=== PATIENT | male | born 1945 | race African-American/Black ===

== ENCOUNTER 2020-01-04 05:20 | Observation (INO) | payer OTHER ==
[2019-12-31 11:38] LABS: BASOPHILS % 0.6 % (0.0-1.0); EOSINOPHILS # (AUTO) 0.1 (0.0-0.4); HEMATOCRIT 42.4 % (38.2-49.6); HEMOGLOBIN 14.3 g/dL (14.0-18.0); LYMPHOCYTES # (AUTO) 2.4 (1.0-3.2); LYMPHOCYTES % 33.8 % (18.0-39.1); MEAN CORPUSCULAR HEMOGLOBIN 30.9 pg (28-32); MEAN CORPUSCULAR HGB CONC 33.7 g/dL (31-35); MEAN CORPUSCULAR VOLUME 91.6 fL (81-99); MONOCYTES # (AUTO) 0.7 (0.2-0.8); MONOCYTES % 9.4 % (4.4-11.3); NEUTROPHILS # (AUTO) 3.7 (2.1-6.9); NEUTROPHILS % 53.8 % (38.7-80.0); PLATELET COUNT 238 x10e3/uL (140-360); RED BLOOD COUNT 4.63 x10e6/uL (4.3-5.7); RED CELL DISTRIBUTION WIDTH 13.1 % (11.7-14.4)
[2019-12-31 11:53] LABS: ANION GAP 15.1 mmol/L (8-16); CALCIUM 10.2 mg/dL (8.4-10.2); CREATININE, SERUM 1.62 mg/dL (0.72-1.25); POTASSIUM 4.1 mmol/L (3.5-5.1)
--- NOTE | 2019-12-31 12:25 | Diagnostic Imaging Report ---
EXAMINATION: CHEST 2 VIEWS INDICATION: Pre-operative COMPARISON: None FINDINGS: LINES/TUBES:None LUNGS:The lungs are well-inflated. No focal consolidation or pulmonary edema. Right middle lobe calcified granuloma. PLEURA:No pleural effusion or pneumothorax. MEDIASTINUM:The cardiomediastinal silhouette appears normal in size and shape. Atherosclerotic calcifications of the thoracic aorta. BONES/SOFT TISSUES:No acute osseous injury. ABDOMEN:No free air under the diaphragm. IMPRESSION: No focal pneumonia or pulmonary edema. Signed by: Ijeoma Wright MD on 12/31/2019 12:22 PM
[~2020-01-04] VITALS: Ht 188 cm; Wt 120.7 kg
[~2020-01-04 05:20] MED LIST: AMLODIPINE BESY10 MG PO; ATORVASTATIN CA20 MG PO; BRIMONIDINE TART5 ML OP; LASIX40 MG PO; LISINOPRIL HCTZ PO; POTASSIUM CHLO10 ME1 PO
--- OUTSIDE RECORDS SUMMARY | 2020-01-04 05:22 | XMS REPORT | Encounter Summary ---
Author Organization Unknown Address [address] [place] [address] Phone [phone] Care Team Providers Care Furniture Repair Technician Name Role Phone Dr. Brock Das 3 [phone] Zaki Conte MD 111 [phone] Francisco Bellamy MD 115 [phone] Reason for Visit Onychomycosis of toenails; Left ear pain/problem Instructions 1. Onychomycosis of toenails terbinafine HCl 250 mg tablet CMP, serum or plasma 2. Serous otitis media Zithromax Z-Peter 250 mg tablet Discussion Note: None recorded. Patient educational handouts: No information available. Plan of Care Reminders Provider Appointments Return to Office on or around 03/23/2019 Brock Das Jr, MD Est Patient 04/13/2019 9:00AM Brock Das Jr, MD Lab CMP, Serum or Plasma 03/16/2019 [facility] Referral None recorded. Procedures None recorded. Surgeries None recorded. Imaging None recorded. Medications Name Start Date amlodipine 10 mg tablet Take 1 tablet every day by oral route for 90 days. atorvastatin 40 mg tablet Take 1 tablet every day by oral route for 90 days. brimonidine 0.15 % eye drops Instill by ophthalmic route for 30 days. furosemide 40 mg tablet Take 1 tablet every day by oral route for 90 days. latanoprost 0.005 % eye drops lisinopril 20 mg-hydrochlorothiazide 25 mg tablet Take 1 tablet every day by oral route for 90 days. potassium chloride ER 20 mEq tablet,extended release(part/cryst) Take 1 tablet every day by oral route for 90 days. terbinafine HCl 250 mg tablet Take 1 tablet every day by oral route. timolol maleate 0.5 % eye drops Zithromax Z-Peter 250 mg tablet TAKE 2 TABLETS (500 MG) BY ORAL ROUTE ONCE DAILY FOR 1 DAY THEN 1 TABLET (250 MG) BY ORAL ROUTE ONCE DAILY FOR 4 DAYS Medications Administered None recorded. Vitals Height Weight BMI Blood Pressure 6 ft 2 in 278 lbs 35.7 kg/m2 138/68 mm[Hg] Lab Results Date Name Specimen Result Interpretation Description Value Range Status Address 02/13/2019 Hepatitis C Virus RNA, Quant, PCR, Serum or Plasma Normal Hepatitis C Antibody non-reactive non-reactive Final [facility] Laboratory: [address] Normal Signal to Cut-off 0.02 <1.00 Final [facility]: [address] Peng [address] 02/13/2019 CMP, Serum or Plasma Alt 31 U/L 0-55 U/L Final [facility]: [address] Ast 19 U/L 5-34 U/L Final [facility] Laboratory: [address] Peng [address] Bun 18.7 mg/dL 8.4-25.7 mg/dL Final [facility]: [address] Alk Phos 111 unit/L 40-150 unit/L Final [facility]: [address] Peng [address] High Glucose 130 mg/dL 70-99 mg/dL Final [facility] Laboratory: [address] Albumin 3.8 g/dL 3.5-5.0 g/dL Final [facility]: [address] Peng [address] High Creatinine 1.60 mg/dL 0.72-1.25 mg/dL Final [facility]: [address] Peng [address] ABNORMAL eGFR Non- 43 mL/min/1.73m2 Final [facility]: [address] Total Bilirubin 0.4 mg/dL 0.2-1.2 mg/dL Final [facility]: [address] Peng [address] ABNORMAL eGFR - 52 mL/min/1.73m2 Final [facility]: [address] Sodium 139 mEq/L 136-145 mEq/L Final [facility] Laboratory: [address] Potassium 4.1 mEq/L 3.5-5.1 mEq/L Final [facility] Laboratory: [address] Chloride 102 mmol/L 98-107 mmol/L [facility] Laboratory: [address] T[address] [facility] Saline Total Protein 7.4 g/dL 6.4-8.3 g/dL Final [facility] Laboratory: [address] Box Saline High Calcium 10.1 mg/dL 8.8-10.0 mg/dL [facility] Laboratory: [address] Bloom Co2 25.2 mmol/L 23.0-31.0 mmol/L Final [facility] Laboratory: [address] [place] [address] Saline Anion Gap 12 calc Final [facility] Laboratory: [address] [place] [address] Saline Allergies Code Code System Name Reaction Severity Status Onset NKDA Problems Name Status Onset Date Source Primary Open Angle Glaucoma Active 12/05/2017 Age-related Cataract Active 12/05/2017 Congestive Heart Failure Active 12/05/2017 Hyperlipidemia Active 01/22/2018 Chronic Kidney Disease Stage 3 Active 01/22/2018 Impaired Glucose Tolerance Active 01/22/2018 Onychomycosis of Toenails Active 01/06/2019 Inflammation of Sacroiliac Joint Active 01/06/2019 Left Ventricular Hypertrophy Active 01/14/2019 Procedures Date Name Performed by 11/25/1997 Hernia Repair Information not available Vaccine List Vaccine Type influenza, high dose seasonal 01/06/20190.5 mL pneumococcal conjugate PCV 13 01/06/20190.5 mL Social History Smoking Status Never Smoker Past Encounters 03/16/2019 Onychomycosis of Toenails; Serous Otitis Media Brock Das Jr, MD: [address], [facility] [address] [address], Ph. 02/13/2019 Onychomycosis of Toenails; Exposure to Hepatitis C Virus Brock Das Jr, MD: [address], [facility], [place] [address], Ph. History of Present Illness Note:Patient presents for lab follow up. Currently witho complaint of ear discomfort Review of Systems Comprehensive Adult Problem ROS Reported By: Patient Constitutional: Constitutional: no significant weight change, no fever, normal activity level, no fatigue Eyes: Eyes: no eye pain, no eye redness, no eye swelling, no eye discharge ENMT: ENMT: no ear discharge, no hearing loss, no sinus pressure, no facial swelling, no congestion, no sore throat, no hoarseness, no mouth lesions, ear pain Neurological symptoms: Neuro: dizziness Physical Exam Upper Respiratory Infection Exam Comprehensive Reported By: Patient Constitutional: General Appearance in no acute distress Head: Sinuses no tenderness Eyes: Pupils EOM intact, PERRLA, conjunctiva non-injected Ears: Right External auditory canal normal appearance, no obstruction, no erythema, no discharge. Left External auditory canal normal appearance, no obstruction, no erythema, no discharge. Right Tympanic membrane landmarks clear, dull, bulging. Left Tympanic membrane: landmarks clear, dull, bulging Nose: Nasal Skin: no lesion, no lacerations. Nasal Mucosa normal, pink and moist Oral Cavity/Mouth: Lips, teeth, gums normal lips, normal gums. Oral Mucosa: normal, moist, no lesions. Tongue: normal tongue. Tonsils: normal tonsils, no lesions. Posterior pharynx: lymphoid hyperplasia (cobblestoning) Lymph Nodes: Cervical no palpable lymph node enlargement Neck: Neck symmetrical, trachea midline Lungs: Respiratory effort unlabored. Auscultation breath sounds normal, no wheezing, no rales / crackles, no rhonchi Cardiovascular System: Auscultation regular rate and rhythm, no murmur, no rubs
--- OUTSIDE RECORDS SUMMARY | 2020-01-04 05:22 | XMS REPORT | Encounter Summary ---
Author Organization Unknown Address [address] [place] [address] Phone [phone] Care Team Providers Care Firewall Administrator Name Role Phone Dr. Brock Das 3 [phone] Zaki Conte MD 111 [phone] Francisco Bellamy MD 115 [phone] Reason for Visit Onychomycosis of toenails Instructions 1. Onychomycosis of toenails CMP, serum or plasma terbinafine HCl 250 mg tablet 2. Exposure to Hepatitis C virus hepatitis C virus RNA, quant, PCR, serum or plasma Discussion Note: None recorded. Patient educational handouts: No information available. Plan of Care Reminders Provider Appointments Est Patient 03/16/2019 8:45AM Brock Das Jr, MD Lab CMP, Serum or Plasma 02/13/2019 [facility] Hepatitis C Virus RNA, Quant, PCR, Serum or Plasma 02/13/2019 [facility] Referral None [...] route. timolol maleate 0.5 % eye drops Medications Administered None recorded. Vitals Height Weight BMI Blood Pressure 6 ft 2 in 274 lbs 35.2 kg/m2 120/68 mm[Hg] Lab Results None recorded. Allergies Code Code System Name Reaction Severity [...] History Smoking Status Never Smoker Past Encounters 02/13/2019 Onychomycosis of Toenails; Exposure to Hepatitis C Virus Brock Das Jr, MD: [address] [facility], [facility], [place] [address], Ph. History of Present Illness Generic HPI Template Reported By: Patient Notes: Patient presents for routine lab follow up. Currently without new complaint. Review of Systems Comprehensive General Adult ROS Reported By: Patient Constitutional: Constitutional: no significant weight gain, no significant weight loss Cardiovascular: Cardiovascular: no chest pain, no shortness of breath when walking Respiratory: Respiratory: no cough, no wheezing, no shortness of breath Gastrointestinal: Gastrointestinal: no abdominal pain, no nausea, no vomiting Endocrine: Endocrine: no fatigue Physical Exam Neurology Exam Reported By: Patient Constitutional: Weight: well-nourished. Ambulation: ambulates independently Head: Size/Trauma: normocephalic Mental Status: Orientation oriented to person, oriented to place, oriented to time. Mood/Affect: appropriate mood, appropriate affect. Language: has spontaneous speech. Memory: recent memory intact, remote memory intact. Fund of Knowledge: current events, past history
--- OUTSIDE RECORDS SUMMARY | 2020-01-04 05:22 | XMS REPORT ---
Author Author [facility] Address Unknown Phone Unavailable Care Team Providers Care Executive Administrative Asst Name Role Phone GAYE VARGAS Unavailable Unavailable Problems This patient has no known problems. Allergies, Adverse Reactions, Alerts This patient has no known allergies or adverse reactions. Medications This patient has no known medications. Results Test Description Test Time Test Comments Text Results Atomic Results Result Comments CHEST 2 VIEWS 2019-12-31 12:21:00 [place] [address] Patient Name: CARIDAD FREEMAN MR #: [id number] : 1945 Age/Sex: 74/M Req #: [id number] Adm Physician: Ordered by: GAYE VARGAS MD Report #: [id number] Location: OR Room/Bed: Procedure: [id number] DX/CHEST 2 VIEWS Exam Date: 12/31/19 Exam Time: 1125 REPORT STATUS: Signed EXAMINATION: CHEST 2 VIEWS INDICATION: Pre-operative COMPARISON: None FINDINGS: LINES/TUBES:None LUNGS:The lungs are well-inflated. No focal consolidation or pulmonary edema. Right middle lobe calcified granuloma. PLEURA:No pleural effusion or pneumothorax. MEDIASTINUM:The cardiomediastinal silhouette appears normal in size and shape. Atherosclerotic calcifications of the thoracic aorta. BONES/SOFT TISSUES:No acute osseous injury. ABDOMEN:No free air under the diaphragm. IMPRESSION: No focal pneumonia or pulmonary edema. Signed by: Renetta Wright MD on 12/31/2019 12:22 PM Dictated By: RENETTA WRIGHT MD 1222 Transcribed By: [place] on 12/31/19 1222 COPY TO: GAYE VARGAS MD
--- OUTSIDE RECORDS SUMMARY | 2020-01-04 05:22 | XMS REPORT | Encounter Summary ---
Author Organization Unknown Address [address] [place] [address] Phone [phone] Care Team Providers Care Vegetable Cook Name Role Phone Dr. Brock Das 3 [phone] Zaki Conte MD 111 [phone] Francisco Bellamy MD 115 [phone] Reason for Visit Quality BMI DEPRESSION FALL; Right low back pain; Bilateral toe problem; AWV Annual Wellness Visit Male (VFP); Bilateral groin problem Instructions 1. Adult health examination 2. Body mass index 30+ - obesity learning about healthy weight 3. Morbid obesity 4. Advance directive discussed with patient advance care planning: care instructions 5. Depression screening 6. At risk for falls preventing falls: care instructions 7. Congestive heart failure US, echocardiogram, transthoracic, complete, w/ color flow 8. Right inguinal hernia general surgery referral 9. Left inguinal hernia general surgery referral 10. Lumbar radiculopathy XR, lumbosacral spine, 2 or 3 view 11. Inflammation of sacroiliac joint 12. Onychomycosis of toenails CMP, serum or plasma 13. Immunization Fluzone High-Dose [id number] (PF) 180 mcg/0.5 mL intramuscular syringe Prevnar 13 (PF) 0.5 mL intramuscular syringe Discussion Note: None recorded. Plan of Care Patient Instructions It was good to see you in the office today for your Medicare Annual Wellness Visit. You have been provided some information on healthy nutrition, including a diet rich in fruits and vegetables, minimizing simple carbohydrates, salt, and saturated fats. I want to encourage regular cardiovascular exercise such as walking at least 30 minutes daily, 5 times per week. Please remember to schedule any preventive health measures that we talked about today. You have also been provided education on fall prevention and community- based lifestyle interventions to help reduce health risks and promote healthy living in your Annual Wellness folder. Screening Recommendations 1. Vaccines Pneumococcal: Recommended today Influenza: Recommended today Shingles: Recommended today Tetanus: Recommended today 2. Prostate Screening: Recommended today 3. Colorectal cancer Screening Colonoscopy: Recommended today Fecal Occult Blood: discussed today and information sent with patient in their Annual Wellness health folder 4. Bone Mass Measurement: No screening necessary 5. Eye Exam Screening: discussed today 6. Cholesterol Screening: discussed today 7. Diabetes Screening: discussed today Reminders Provider Appointments None recorded. Lab CMP, Serum or Plasma 01/06/2019 [facility] Referral General Surgery Referral 01/06/2019 Surjit Thacker MD General Surgery Referral 01/06/2019 Surjit Thacker MD Procedures None recorded. Surgeries None recorded. Imaging US, Echocardiogram, Transthoracic, Complete, W/ Color Flow 01/06/2019 [facility] XR, Lumbosacral Spine, 2 or 3 View 01/06/2019 [facility] Medications Name Start Date amlodipine 10 mg [...] route for 90 days. potassium chloride ER 10 mEq tablet,extended release(part/cryst) Take 1 tablet every day by oral route for 90 days. Shingrix (PF) 50 mcg/0.5 mL intramuscular suspension, kit timolol maleate 0.5 % eye drops Medications Administered None recorded. Vitals Height Weight BMI Blood Pressure 6 ft 2 in 275 lbs 35.3 kg/m2 132/78 mm[Hg] Lab Results None recorded. Allergies Code Code System Name Reaction Severity Status Onset NKDA Problems Name Status Onset Date Source Primary Open Angle Glaucoma Active 12/05/2017 Age-related Cataract Active 12/05/2017 Congestive Heart Failure Active 12/05/2017 Hyperlipidemia Active 01/22/2018 Chronic Kidney Disease Stage 3 Active 01/22/2018 Impaired Glucose Tolerance Active 01/22/2018 Onychomycosis of Toenails Active 01/06/2019 Inflammation of Sacroiliac Joint Active 01/06/2019 Procedures Date Name Performed by 11/25/1997 Hernia Repair Information not available 01/06/2019 US, Echocardiogram, Transthoracic, Complete, W/ Color Flow [facility] [address] [place] [address] (Work [address]) 01/06/2019 XR, Lumbosacral Spine, 2 or 3 View [facility] [address] [place] [address] (Work Place) Vaccine List None recorded. Social History Smoking Status Never Smoker Past Encounters 01/06/2019 Adult Health Examination; Body Mass Index 30+ - Obesity; Morbid Obesity; Advance Directive Discussed with Patient; Depression Screening; At Risk for Falls; Congestive Heart Failure; Right Inguinal Hernia; Left Inguinal Hernia; Lumbar Radiculopathy; Inflammation of Sacroiliac Joint; Onychomycosis of Toenails; Immunization Brock Das Jr, MD: [address] [facility] [address], [place] [address], Ph. History of Present Illness Mini Cog Reported By: Patient Functional Ability: Personal/Social/ Draw a clock and write in the numbers in the correct place, and set the time to 10 minutes after 11 o'clock was completed correctly? Yes, 3 word recall: Your nurse or doctor will ask you to remember 3 words. In 5 minutes, they will ask you to repeat them. Patient recalled 3 words Musculoskeletal Pain Reported By: Patient HPI: Location: pain radiating to the legs right, lumbar spine. Quality: dull. Severity: worsening. Duration: present for 1-6 months. Timing: intermittent. Alleviating factors: rest. Aggravating factors: movement/positioning. Associated Symptoms: no fever, no weak limbs, no tingling, no numbness of the legs/feet Review of Systems Comprehensive General Adult ROS, Comprehensive Adult Problem ROS Reported By: Patient Cardiovascular: Cardiovascular: no chest pain Gastrointestinal: Gastrointestinal: normal appetite Musculoskeletal: Musculoskeletal: no soft tissue swelling, no joint swelling, myalgia Integumentary: Skin: no redness, no skin lesions, no swelling Neurologic: Neurologic: no weakness, no numbness. Neuro: no tingling Hematologic/Lymphatic: Hematologic/Lymphatic no bruising Constitutional: Constitutional: no significant weight change Physical Exam Musculoskeletal and Joint Exam, Low Back Pain Reported By: Patient Musculoskeletal System: Musculoskeletal System normal range of motion in all peripheral joints. Right Hip: no tenderness. Left Hip: no tenderness. Lumbar / Lumbosacral Spine normal lordosis, tenderness on palpation, spasms. Soft Tissue/Bursa: tender point none Constitutional: General Appearance: healthy-appearing, normal body habitus, NAD Gait and Station: Appearance: normal gait, no limp, ambulating with no assistive devices
--- OUTSIDE RECORDS SUMMARY | 2020-01-04 05:22 | XMS REPORT | Encounter Summary ---
Author Organization Unknown Address [address] [place] [address] Phone [phone] Care Team Providers Care Wing Mailer Machine Operator Name Role Phone Dr. Brock Das 3 [phone] Andrew Rodas MD 107 [phone] Zaki Conte MD 111 [phone] Francisco Bellamy MD 115 [phone] Reason for Visit Right knee pain/problem; Annual Alcohol Misuse Screening Instructions 1. Hypertensive renal disease amlodipine 10 mg tablet furosemide 40 mg tablet lisinopril 20 mg-hydrochlorothiazide 25 mg tablet potassium chloride ER 20 mEq tablet,extended release(part/cryst) CMP, serum or plasma CBC w/ auto diff TSH, serum or plasma 2. Chronic kidney disease stage 3 PTH (parathyroid hormone), intact, serum or plasma 3. Hyperlipidemia atorvastatin 40 mg tablet high cholesterol: care instructions lipid panel, serum 4. Alcohol consumption screening learning about alcohol misuse 5. Iliotibial band friction syndrome physical therapy referral - *Please call the patient and schedule* diclofenac sodium 75 mg tablet,delayed release 6. Jaw pain XR, mandible - *Please call the patient and schedule* 7. Screening for malignant neoplasm of colon colonoscopy referral 8. Impaired glucose tolerance HbA1c (hemoglobin A1c), blood 9. Screening for malignant neoplasm of prostate PSA, serum or plasma Discussion Note: None recorded. Plan of Care Reminders Provider Appointments Est Patient 10/05/2019 9:00AM Brock Das Jr, MD Lab CMP, Serum or Plasma 07/06/2019 [facility] CBC W/ Auto Diff 07/06/2019 [facility] TSH, Serum or Plasma 07/06/2019 [facility] Lipid Panel, Serum 07/06/2019 [facility] HbA1C (Hemoglobin a1C), Blood 07/06/2019 [facility] PTH (Parathyroid Hormone), Intact, Serum or Plasma 07/06/2019 [facility] PSA, Serum or Plasma 07/07/2019 [facility] Referral Colonoscopy Referral 07/06/2019 Andrew Rodas MD Physical Therapy Referral 07/06/2019 [facility] Procedures None recorded. Surgeries None recorded. Imaging XR, Mandible 07/06/2019 [facility] Medications Name Start Date amlodipine 10 mg tablet Take 1 tablet every day by oral route for 90 days. atorvastatin 40 mg tablet Take 1 tablet every day by oral route for 90 days. brimonidine 0.15 % eye drops Instill by ophthalmic route for 30 days. diclofenac sodium 75 mg tablet,delayed release Take 1 tablet twice a day by oral route for 30 days. furosemide 40 mg tablet Take 1 tablet every day by oral route for 90 days. latanoprost 0.005 % eye drops lisinopril 20 mg-hydrochlorothiazide 25 mg tablet Take 1 tablet every day by oral route for 90 days. potassium chloride ER 20 mEq tablet,extended release(part/cryst) Take 1 tablet every day by oral route for 90 days. timolol maleate 0.5 % eye drops Medications Administered None recorded. Vitals Height Weight BMI Blood Pressure 6 ft 2 in 276.8 lbs 35.5 kg/m2 132/72 mm[Hg] Lab Results None recorded. Allergies Code [...] by 11/25/1997 Hernia Repair Information not available Colonoscopy Information not available 07/06/2019 XR, Mandible [facility] [address] [place] [address] (Work Place) Vaccine List Vaccine Type influenza, high dose seasonal 01/06/20190.5 mL pneumococcal conjugate PCV 13 01/06/20190.5 mL Social History Tobacco Smoking Status Never Smoker Past Encounters 07/06/2019 Hypertensive Renal Disease; Chronic Kidney Disease Stage 3; Hyperlipidemia; Alcohol Consumption Screening; Iliotibial Band Friction Syndrome; Jaw Pain; Screening for Malignant Neoplasm of Colon; Impaired Glucose Tolerance; Screening for Malignant Neoplasm of Prostate Brock Pippa Jr, MD: [address] [facility], [address], [place] [address], Ph. History of Present Illness Musculoskeletal Pain Reported By: Patient HPI: Location: pain is not radiating, right hip, right knee. Severity: worsening. Duration: present <1 month. Timing: constant. Alleviating factors: rest. Aggravating factors: movement/positioning. Associated Symptoms: no fever, no weak limbs, no tingling, no numbness of the legs/feet Review of Systems Comprehensive Adult Problem ROS Reported By: Patient Constitutional: Constitutional: no significant weight change, good appetite Cardiovascular: Cardiovascular: no chest pain Musculoskeletal: Musculoskeletal: no soft tissue swelling, no joint swelling, myalgia Skin: Skin: no redness, no skin lesions, no swelling, no bruising Neurological symptoms: Neuro: no numbness, no weakness, no tingling Physical Exam Musculoskeletal and Joint Exam, Low Back Pain Reported By: Patient Musculoskeletal System: Musculoskeletal System normal range of motion in all peripheral joints Psychiatric: Orientation: oriented to time, oriented to place, oriented to person. Mood and Affect: active and alert, normal mood, normal affect
--- OUTSIDE RECORDS SUMMARY | 2020-01-04 05:22 | XMS REPORT | Encounter Summary ---
Author Organization Unknown Address [address] [place] [address] Phone [phone] Care Team Providers Care Operations Trainer Name Role Phone Dr. Brock Das 3 [phone] Zaki Conte MD 111 [phone] Francisco Bellamy MD 115 [phone] Reason for Visit Onychomycosis of toenails; Advance Care Plan Instructions 1. Onychomycosis of toenails 2. Chronic kidney disease stage 3 3. Advance directive discussed with patient advance care planning: care instructions Discussion Note: None recorded. Plan of Care Patient Instructions Patient Instructions on Filing Advance Directives Be sure that you have easy access to your paperwork for your medical power of insurance attorney and advanced directives. Be sure that the designated person as well as important family members have copies of those forms as well. Please have contact information of your designee readily available. In the event of hospitalization, please bring those important documents with you for reference. Reminders Provider Appointments Est Patient 07/13/2019 9:15AM Brock Das Jr, MD Lab None recorded. Referral None recorded. Procedures None recorded. Surgeries None recorded. Imaging None recorded. Medications Name Start Date amlodipine 10 mg tablet Take 1 tablet every day by oral route for 90 days. atorvastatin 40 mg tablet Take 1 tablet every day by oral route for 90 days. azithromycin 250 mg tablet TAKE 2 TABLETS (500 MG) BY ORAL ROUTE ONCE DAILY FOR 1 DAY THEN 1 TABLET (250 MG) BY ORAL ROUTE ONCE DAILY FOR 4 DAYS brimonidine 0.15 % eye drops Instill by [...] BMI Blood Pressure 6 ft 2 in 275.2 lbs 35.3 kg/m2 134/72 mm[Hg] Lab Results Date Name Specimen Result Interpretation Description Value Range Status Address 03/16/2019 CMP, Serum or Plasma Alt 36 U/L 0-55 U/L Final [facility] Laboratory: [address] [place] [address], [place] 23 U/L 5-34 U/L Final [facility] Laboratory: [address] Bun 18.1 mg/dL 8.4-25.7 mg/dL Final [facility] Laboratory: [address] Alk Phos 102 unit/L 40-150 unit/L Final [facility] Laboratory: [address] High Glucose 138 mg/dL 70-99 mg/dL Final [facility] Laboratory: [address] Albumin 4.0 g/dL 3.5-5.0 g/dL Final [facility] Laboratory: [address] High Creatinine 1.63 mg/dL 0.72-1.25 mg/dL Final [facility] Laboratory: [address] ABNORMAL eGFR Non- 42 mL/min/1.73m2 Final [facility] Laboratory: [address] Total Bilirubin 0.4 mg/dL 0.2-1.2 mg/dL Final [facility] Laboratory: [address] ABNORMAL eGFR - 51 mL/min/1.73m2 Final [facility] Laboratory: [address] Sodium 140 mEq/L 136-145 mEq/L Final [facility] Laboratory: [address] Potassium 3.8 mEq/L 3.5-5.1 mEq/L Final [facility] Laboratory: [address] Chloride 105 mmol/L 98-107 mmol/L Final [facility] Laboratory: [address] Total Protein 7.2 g/dL 6.4-8.3 g/dL Final [facility] Laboratory: [address] Calcium 9.9 mg/dL 9.0-10.2 mg/dL Final [facility] Laboratory: [address] Co2 28.1 mmol/L 23.0-31.0 mmol/L Final [facility] Laboratory: [address] Anion Gap 7 calc Final [facility] Laboratory: [address] Peng [facility] Praveen Bloom Allergies Code Code System Name Reaction Severity [...] History Smoking Status Never Smoker Past Encounters 04/13/2019 Onychomycosis of Toenails; Chronic Kidney Disease Stage 3; Advance Directive Discussed with Patient Brock Das Jr, MD: [address], [address] [address], Ph. 03/16/2019 Onychomycosis of Toenails; Serous Otitis Media Brock Das Jr, MD: [address], [address] [address], Ph. History of Present Illness Note:Patient presents for lab follow up.
I'd like to talk about what is ahead with your illness and do some thinking in advance about what is important to you so I can make sure we provide you with the care you want-is that okay? {{Yes*|No}}

Patient presents for lab follow up. Currently without complaint. Review of Systems Comprehensive General Adult ROS, Comprehensive Adult Problem ROS Reported By: Patient Constitutional: Constitutional: no significant weight gain, no significant weight loss Cardiovascular: Cardiovascular: no chest pain, no shortness of breath when walking Respiratory: Respiratory: no cough, no wheezing, no shortness of breath Integumentary: Skin: no rashes, no skin lesions Endocrine: Endocrine: no fatigue Physical Exam Neurology Exam, Skin Exam, Foot Only (Brief) Reported By: Patient Constitutional: Weight: well-nourished. Ambulation: ambulates independently Head: Size/Trauma: normocephalic Mental Status: Orientation oriented to person, oriented to place, oriented to time. Mood/Affect: appropriate mood, appropriate affect. Language: has spontaneous speech. Memory: recent memory intact, remote memory intact. Fund of Knowledge: current events, past history Ankles and Feet: Active Range of Motion Right: ; onychomycosis"
--- OUTSIDE RECORDS SUMMARY | 2020-01-04 05:22 | XMS REPORT | Encounter Summary ---
Author Organization Unknown Address [address] [place] [address] Phone [phone] Care Team Providers Care Hot Plate Press Operator Name Role Phone Dr. Brock Das 3 [phone] Andrew Rodas MD 107 [phone] Zaki Conte MD 111 [phone] Francisco Bellamy MD 115 [phone] Reason for Visit hyperlipidemia; lab follow-up Instructions 1. Type 2 diabetes mellitus diabetic nutrition education referral metformin ER 500 mg tablet,extended release 24 hr 2. Chronic kidney disease stage 3 3. Hyperlipidemia high cholesterol: care instructions 4. Hyperparathyroidism NM, parathyroid scan 5. Body mass index 30+ - obesity body mass index: care instructions learning about healthy weight Discussion Note: None recorded. Plan of Care Reminders Provider Appointments Est Patient 10/05/2019 9:00AM Brock Das Jr, MD Lab None recorded. Referral Diabetic Nutrition Education Referral 07/13/2019 Procedures None recorded. Surgeries None recorded. Imaging NM, Parathyroid Scan 07/13/2019 [facility]iology Medications Name Start Date amlodipine [...] day by oral route for 90 days. lisinopril 20 mg-hydrochlorothiazide 25 mg tablet Take 1 tablet every day by oral route for 90 days. metformin ER 500 mg tablet,extended release 24 hr Take 1 tablet every day by oral route for 90 days. potassium chloride ER 20 mEq tablet,extended release(part/cryst) Take 1 tablet every day by oral route for 90 days. Medications Administered None recorded. Vitals Height Weight BMI Blood Pressure 6 ft 2 in 270.2 lbs 34.7 kg/m2 (1) 148/76 mm[Hg] (2) 130/70 mm[Hg] Lab Results Date Name Specimen Result Interpretation Description Value Range Status Address 07/06/2019 CMP, Serum or Plasma Alt 33 U/L 0-55 U/L Final [facility] Laboratory: [address] Ast 24 U/L 5-34 U/L Final [facility] Laboratory: [address] [place] [address] Bun 21.2 mg/dL 8.4-25.0 mg/dL Final [facility] Laboratory: [address] Alk Phos 91 unit/L 40-150 unit/L Final [facility] Laboratory: [address] High Glucose 101 mg/dL 70-99 mg/dL Final [facility] Laboratory: [address] [place] [address] Albumin 4.1 g/dL 3.4-5.1 g/dL Final [facility] Laboratory: [address] High Creatinine 1.64 mg/dL 0.72-1.25 mg/dL Final [facility] Laboratory: [address] ABNORMAL eGFR Non- 42 mL/min/1.73m2 Final [facility] Laboratory: [address] [place] [address] Total Bilirubin 0.6 mg/dL 0.2-1.2 mg/dL Final [facility] Laboratory: [address] [place] [address] ABNORMAL eGFR - 50 mL/min/1.73m2 Final [facility] Laboratory: [address] [place] [address] Sodium 143 mEq/L 135-145 mEq/L Final [facility] Laboratory: [address] Potassium 3.6 mEq/L 3.5-5.1 mEq/L Final [facility] Laboratory: [address] Chloride 104 mmol/L 98-110 mmol/L Final [facility] Laboratory: [address] Total Protein 7.1 g/dL 6.1-8.2 g/dL Final [facility] Laboratory: [address] High Calcium 10.3 mg/dL 9.0-10.2 mg/dL Final [facility] Laboratory: [address] Co2 27.0 mmol/L 20.0-32.0 mmol/L Final [facility] Laboratory: [address] Anion Gap 12 calc Final [facility] Laboratory: [address] 07/06/2019 Lipid Panel, Serum Low Hdl 23 mg/dL Final [facility] Laboratory: [address] Triglyceride 134 mg/dL 0-150 mg/dL Final [facility] Laboratory: [address] VLDL (Calculated) 27 mg/dL Final [facility] Laboratory: [address] cholesterol/HDL Ratio 8.0 mg/dL Final [facility] Laboratory: [address] non-HDL Cholesterol (Calculated) 160 mg/dL 0-160 mg/dL Final [facility] Laboratory: [facility] Tanya yasmine [address] Cholesterol 183 mg/dL 0-200 mg/dL Final [facility] Laboratory: [facility] Tanya yasmine [address] High LDL (Calculated) 133 mg/dL 0-130 mg/dL Final [facility] Laboratory: [facility] Tanya yasmine [address] 07/06/2019 TSH, Serum or Plasma Tsh 2.121 uIU/mL 0.350-4.940 uIU/mL Final [facility] Laboratory: [facility] Tanya yasmine [address] 07/06/2019 HbA1C (Hemoglobin a1C), Blood High A1C W/eag 6.6 % 1.0-5.7 % Final [facility] Laboratory: [facility] Tanya yasmine [address] Average Blood Glucose 143 mg/dL Final [facility] Laboratory: [facility] Tanya yasmine [address] 07/06/2019 PTH (Parathyroid Hormone), Intact, Serum or Plasma High Parathyroid Hormone, Intact 138 pg/mL 14-64 pg/mL Final [facility] Laboratory: [facility] Tanya yasmine [address] 07/06/2019 CBC W/ Auto Diff Normal White Blood Cell Count 7.4 thousand/uL 3.8-10.8 thousand/uL Final [facility] Laboratory: [facility] [address] Normal Red Blood Cell Count 4.40 million/uL 4.20-5.80 million/uL Final [facility] Laboratory: [facility] [address] Normal Hemoglobin 13.6 g/dL 13.2-17.1 g/dL Final [facility] Laboratory: [address] Normal Hematocrit 40.3 % 38.5-50.0 % Final [facility] Laboratory: [address] Normal Mcv 91.6 fL 80.0-100.0 fL Final [facility] Laboratory: [address] [place] Normal Mch 30.9 pg 27.0-33.0 pg Final [facility] Laboratory: [address], [place] Normal Mchc 33.7 g/dL 32.0-36.0 g/dL Final [facility] Laboratory: [address] [place] Normal Rdw 13.1 % 11.0-15.0 % Final [facility] Laboratory: [address] Normal Platelet Count 248 thousand/uL 140-400 thousand/uL Final [facility] Laboratory: [address] [place] Normal Mpv 11.8 fL 7.5-12.5 fL Final [facility] Laboratory: [address], [place] Normal Absolute Neutrophils 3582 cells/uL 2142-1225 cells/uL Final [facility] Laboratory: [address] Normal Absolute Lymphocytes 2916 cells/uL 850-3900 cells/uL Final [facility] Laboratory: [address] [place] Normal Absolute Monocytes 799 cells/uL 200-950 cells/uL Final [facility] Laboratory: [address] [place] Normal Absolute Eosinophils 67 cells/uL 15-500 cells/uL Final [facility] Laboratory: [address] [place] Normal Absolute Basophils 37 cells/uL 0-200 cells/uL Final [facility] Laboratory: [address] [place] Normal Neutrophils 48.4 % Final [facility] Laboratory: [address] [place] Normal Lymphocytes 39.4 % Final [facility] Laboratory: [address], [place] Normal Monocytes 10.8 % Final [facility] Laboratory: [address] [place] Normal Eosinophils 0.9 % Final [facility] Laboratory: [address] [place] Normal Basophils 0.5 % Final [facility] Laboratory: [address] 07/06/2019 PSA, Serum or Plasma Normal PSA, Total 1.9 NG/mL < or=4.0 NG/mL Final [facility] Laboratory: [address] Allergies Code Code System Name Reaction Severity Status Onset NKDA Problems Name Status Onset Date Source Primary Open Angle Glaucoma Active 12/05/2017 Age-related Cataract Active 12/05/2017 Congestive Heart Failure Active 12/05/2017 Hyperlipidemia Active 01/22/2018 Chronic Kidney Disease Stage 3 Active 01/22/2018 Onychomycosis of Toenails Active 01/06/2019 Inflammation of Sacroiliac Joint Active 01/06/2019 Left Ventricular Hypertrophy Active 01/14/2019 Procedures Date Name Performed by 11/25/1997 Hernia Repair Information not available Colonoscopy Information not available 07/06/2019 XR, Mandible [facility] [address] [place], [place] [id number] (Work Place) 07/13/2019 NM, Parathyroid Scan [facility] [address] [place], [place] [id number] (Work Place) Vaccine List Vaccine Type influenza, high dose seasonal 01/06/20190.5 mL pneumococcal conjugate PCV 13 01/06/20190.5 mL Social History Tobacco Smoking Status Never Smoker Past Encounters 07/13/2019 Type 2 Diabetes Mellitus; Chronic Kidney Disease Stage 3; Hyperlipidemia; Hyperparathyroidism; Body Mass Index 30+ - Obesity Brock Das Jr, MD: [address], [facility] [address] [address], Ph. 07/06/2019 Hypertensive Renal Disease; Chronic Kidney Disease Stage 3; Hyperlipidemia; Alcohol Consumption Screening; Iliotibial Band Friction Syndrome; Jaw Pain; Screening for Malignant Neoplasm of Colon; Impaired Glucose Tolerance; Screening for Malignant Neoplasm of Prostate Brock Das Jr, MD: [address], [facility] [address] [address], Ph. History of Present Illness Hypertension Reported By: Patient HPI: Severity: mild. Onset/Timing: gradual onset. Alleviating Factors: relieved with rest, medication. Self Care: not under emotional stress, blood pressure goal: 130/80. Associated Symptoms: no shortness of breath, no fatigue, no decline in exercise capacity Hyperlipidemia Reported By: Patient HPI: Type of hyperlipidemia: combined, hypercholesterolemia. Duration: chronic. Control: not at goal. Current Therapy: currently taking: atorvastatin, last LDL level: 133 date: 133. Complications: no coronary artery disease. Risk Factors: diabetes, hypertension, obesity Generic HPI Template Reported By: Patient Notes: Patient presents for routine lab follow up. Currently without new complaint. Review of Systems Comprehensive General Adult ROS Reported By: Patient Constitutional: Constitutional: no significant weight gain, no significant weight loss Cardiovascular: Cardiovascular: no chest pain, no shortness of breath when walking Respiratory: Respiratory: no cough, no wheezing, no shortness of breath Endocrine: Endocrine: no fatigue Physical Exam Cardiology Exam Reported By: Patient Constitutional: General Appearance: well-nourished, well-developed, appears stated age. Level of Distress: comfortable Lungs: Respiratory Effort: unlabored. Chest Exam: no chest wall tenderness. Auscultation: clear, no wheezing, no rales, no rhonchi Cardiovascular: Rate And Rhythm: regular. Heart Sounds: normal S1, physiologically split S2, no rub, no gallop, no click. Systolic Murmur: not heard. Diastolic Murmur: not heard. Extremities: no cyanosis, no edema, no peripheral signs of emboli Peripheral Pulses: Pulses: full and equal in all extremities except if noted Skin: Inspection and Palpation: warm and dry
--- OUTSIDE RECORDS SUMMARY | 2020-01-04 05:23 | XMS REPORT | Encounter Summary ---
Author Organization Unknown Address [address] [place] [address] Phone [phone] Care Team Providers Care Gis Scientist Name Role Phone Dr. Brock Das 3 [phone] Andrew Rodas MD 107 [phone] Zaki Conte MD 111 [phone] Francisco Bellamy MD 115 [phone] Reason for Visit Left ear pain/problem; diabetes Instructions 1. Type 2 diabetes mellitus metformin ER 500 mg tablet,extended release 24 hr glucose, fingerstick, blood microalbumin/creatinine, ratio, urine 2. Secondary hyperparathyroidism 3. Metformin adverse reaction 4. Otitis media Augmentin 875 mg-125 mg tablet Discussion Note: None recorded. Patient educational handouts: No information available. Plan of Care Reminders Provider Appointments Est Patient 10/05/2019 9:00AM Brock Das Jr, MD Lab Glucose, Fingerstick, Blood 08/13/2019 [facility] Microalbumin/creatinine, Ratio, Urine 08/13/2019 [facility] Referral None recorded. Procedures None recorded. Surgeries None recorded. Imaging None recorded. Medications Name Start Date amlodipine 10 mg tablet Take 1 tablet every day by oral route for 90 days. atorvastatin 40 mg tablet Take 1 tablet every day by oral route for 90 days. Augmentin 875 mg-125 mg tablet Take 1 tablet every 12 hours by oral route for 7 days. brimonidine 0.15 % eye drops Instill [...] days. timolol maleate 0.5 % eye drops Apply by ophthalmic route for 75 days. Medications Administered None recorded. Vitals Height Weight BMI Blood Pressure 6 ft 2 in 268.8 lbs 34.5 kg/m2 132/84 mm[Hg] Lab Results Date Name Specimen Result Interpretation Description Value Range Status Address Glucose, Fingerstick, Blood Blood Glucose: mg/dl 113 p- Hobby: [address] Allergies Code Code System Name Reaction Severity Status Onset NKDA Problems Name Status Onset Date Source Primary Open Angle Glaucoma Active 12/05/2017 Age-related Cataract Active 12/05/2017 Congestive Heart Failure Active 12/05/2017 Hyperlipidemia Active 01/22/2018 Chronic Kidney Disease Stage 3 Active 01/22/2018 Onychomycosis of Toenails Active 01/06/2019 Inflammation of Sacroiliac Joint Active 01/06/2019 Left Ventricular Hypertrophy Active 01/14/2019 Type 2 Diabetes Mellitus Active 08/13/2019 Otitis Media Active 08/13/2019 Secondary Hyperparathyroidism Active 08/13/2019 Metformin Adverse Reaction Active 08/13/2019 Procedures Date Name Performed by 11/25/1997 Hernia Repair Information not available Colonoscopy Information not available 07/13/2019 NM, Parathyroid Scan [facility] [address] [place] [address] (Work [address]) Vaccine List Vaccine Type influenza, high dose seasonal 01/06/20190.5 mL pneumococcal conjugate PCV 13 01/06/20190.5 mL Social History Tobacco Smoking Status Never Smoker Past Encounters 08/13/2019 Type 2 Diabetes Mellitus; Secondary Hyperparathyroidism; Metformin Adverse Reaction; Otitis Media Brock Das Jr, MD: [address], [address] [address], Ph. 07/13/2019 Type 2 Diabetes Mellitus; Chronic Kidney Disease Stage 3; Hyperlipidemia; Hyperparathyroidism; Body Mass Index 30+ - Obesity Brock Das Jr, MD: [address], [address] [address], Ph. History of Present Illness Diabetes F/U Reported By: Patient HPI: Labs: last A1C result: 6.6. Context: side effects from medications. Associated Symptoms: no dizziness, no sweats, no headaches, no confusion, no increased thirst, no increased appetite, no increased urination, no blurred vision, no numbness of feet Notes: Endorses medication compliance. Hypertension Reported By: Patient HPI: Severity: mild. [...] breath Endocrine: Endocrine: no fatigue Physical Exam Upper Respiratory Infection Exam Comprehensive, Diabetes, Diabetic Foot Exam Reported By: Patient Constitutional: General Appearance in no acute distress Head: Sinuses no tenderness Eyes: Pupils EOM intact, PERRLA, conjunctiva non-injected Ears: Right External auditory canal normal appearance, no obstruction, no erythema, no discharge. Left External auditory canal normal appearance, no obstruction, no erythema, no discharge. Right Tympanic membrane landmarks clear. Left Tympanic membrane: erythematous, dull, loss of landmarks Nose: Nasal Skin: no lesion, no lacerations. Nasal Mucosa normal, pink and moist Oral Cavity/Mouth: Lips, teeth, gums normal lips, normal gums. Oral Mucosa: normal, moist, no lesions. Tongue: normal tongue. Tonsils: normal tonsils, no lesions. Posterior pharynx: normal Lymph Nodes: Cervical no palpable lymph node enlargement Neck: Neck symmetrical, trachea midline
--- OUTSIDE RECORDS SUMMARY | 2020-01-04 05:23 | XMS REPORT | Encounter Summary ---
Author Organization Unknown Address [address] [place] [address] Phone [phone] Care Team Providers Care Talent Development Director Name Role Phone Dr. Brock Das 3 [phone] Andrew Rodas MD 107 [phone] Zaki Conte MD 111 [phone] Francisco Bellamy MD 115 [phone] Reason for Visit diabetic foot exam; hyperlipidemia; Right knee pain/problem; Right groin problem; diabetes Instructions 1. Type 2 diabetes mellitus metformin ER 500 mg tablet,extended release 24 hr glucose, fingerstick, blood diabetic ophthalmology referral 2. Hyperlipidemia atorvastatin 40 mg tablet 3. Chronic kidney disease stage 3 4. Secondary hyperparathyroidism 5. Hypertensive renal disease amlodipine 10 mg tablet furosemide 40 mg tablet lisinopril 20 mg-hydrochlorothiazide 25 mg tablet potassium chloride ER 20 mEq tablet,extended release(part/cryst) 6. Pain in right knee XR, knee, 3 view 7. Inguinal pain 8. Right inguinal hernia inguinal hernia: care instructions general surgery referral Discussion Note: None recorded. Plan of Care Reminders Provider Appointments None recorded. Lab Glucose, Fingerstick, Blood 10/05/2019 [facility] Referral Diabetic Ophthalmology Referral 10/05/2019 General Surgery Referral 10/05/2019 Surjit Thacker MD Procedures None recorded. Surgeries None recorded. Imaging XR, Knee, 3 View 10/05/2019 [facility] Radiology Medications Name Start Date amlodipine [...] 90 days. latanoprost 0.005 % eye drops Instill 1 drop every day by ophthalmic route for 75 days. lisinopril 20 mg-hydrochlorothiazide 25 mg tablet TAKE 1 TABLET BY MOUTH EVERY DAY metformin ER 500 mg tablet,extended release 24 [...] BMI Blood Pressure 6 ft 2 in 270.8 lbs 34.8 kg/m2 118/72 mm[Hg] Results Lab Results Date Name Specimen Result Interpretation Description Value Range Status Address 10/05/2019 Glucose, Fingerstick, Blood Blood Glucose: mg/dl 109 [facility]: [address] Allergies Code Code System Name Reaction Severity Status Onset NKDA Problems Name Status Onset Date Source Primary Open Angle Glaucoma Active 12/05/2017 Senile Cataract Active 12/05/2017 Congestive Heart Failure Active 12/05/2017 Hyperlipidemia Active 01/22/2018 Chronic Kidney Disease Stage 3 Active 01/22/2018 Onychomycosis of Toenails Active 01/06/2019 Inflammation of Sacroiliac Joint Active 01/06/2019 Left Ventricular Hypertrophy Active 01/14/2019 Type 2 Diabetes Mellitus Active 08/13/2019 Otitis Media Active 08/13/2019 Secondary Hyperparathyroidism Active 08/13/2019 Metformin Adverse Reaction Active 08/13/2019 Morbid Obesity Active 10/02/2019 Procedures Date Name Performed by 11/25/1997 Hernia Repair Information not available Colonoscopy Information not available 10/05/2019 XR, Knee, 3 View [facility] [address] [place] [address] (Work Place) Vaccine List Vaccine Type influenza, high dose seasonal 01/06/20190.5 mL pneumococcal conjugate PCV 13 01/06/20190.5 mL Social History Tobacco Smoking Status Never Smoker Past Encounters 10/05/2019 Type 2 Diabetes Mellitus; Hyperlipidemia; Chronic Kidney Disease Stage 3; Secondary Hyperparathyroidism; Hypertensive Renal Disease; Pain in Right Knee; Inguinal Pain; Right Inguinal Hernia Brock Das Jr, MD: [id number], [facility], [place] [address], Ph. History of Present Illness Hypertension Reported By: Patient HPI: Severity: mild. Onset/Timing: gradual onset. Alleviating Factors: relieved with rest, medication. Self Care: not under emotional stress, blood pressure goal: 130/80. Associated Symptoms: no shortness of breath, no fatigue, no decline in exercise capacity Musculoskeletal Pain Reported By: Patient HPI: Location: pain is not radiating, right knee. Quality: dull. Severity: worsening. Duration: present for >12 months. Timing: constant, intermittent. Alleviating factors: rest. Aggravating factors: movement/positioning. Associated Symptoms: no fever, no weak limbs, no tingling, no numbness of the legs/feet Hyperlipidemia Reported By: Patient HPI: Type of hyperlipidemia: combined, hypercholesterolemia. Duration: chronic. Current Therapy: currently taking:. Complications: no coronary artery disease Review of Systems Comprehensive Adult Problem ROS [...] of motion in all peripheral joints. Right Knee: no warmth, no erythema, tenderness. Left Knee: no warmth, no erythema Psychiatric: Orientation: oriented to time, oriented to place, oriented to person. Mood and Affect: active and alert, normal mood, normal affect Gait and Station: Appearance: limp
--- OUTSIDE RECORDS SUMMARY | 2020-01-04 05:23 | XMS REPORT | Encounter Summary ---
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 Brock Das 3 [phone] Andrew Rodas MD 107 [phone] Zaki Conte MD 111 [phone] Francisco Bellamy MD 115 [phone] Reason for Visit pre-op evaluation; hyperlipidemia; AWV Annual Wellness Visit Male (VFP); hypertension; diabetes Instructions 1. Adult health examination 2. Obesity learning about healthy weight 3. Advance directive discussed with patient advance care planning: care instructions 4. Type 2 diabetes mellitus glucose, fingerstick, blood HbA1c (hemoglobin A1c), blood 5. Depression screening 6. Hypertensive heart and renal disease with (congestive) heart failure CMP, serum or plasma CBC w/ auto diff 7. Congestive heart failure 8. Chronic kidney disease stage 3 urinalysis, dipstick 9. Hyperlipidemia lipid panel, serum 10. Inflammation of sacroiliac joint 11. Secondary hyperparathyroidism PTH (parathyroid hormone), intact, serum or plasma 12. Screening for cardiovascular system disease ankle brachial index - Peripheral Artery Disease Ratio (QuantaFlo) 13. Peripheral vascular disease 14. Electrocardiogram abnormal cardiology referral 15. Ventricular premature complex 16. Atrial fibrillation 17. Osteoarthritis of right knee joint Discussion Note: None recorded. Plan of Care [...] Annual Wellness folder. Screening Recommendations 1. Vaccines Pneumonia: Next one 12/2019 Influenza: Recommended today 2. Colorectal Cancer Screening: Colonoscopy (every 3-5 years) 3. Annual Prostate Screening 4. Annual Depression Screening 5. Annual Alcohol Screening 6. Annual Fall Risk Screening 7. Annual Health Risk Assessment Reminders Provider Appointments None recorded. Lab Glucose, Fingerstick, Blood 11/27/2019 [email or web address] HbA1C (Hemoglobin a1C), Blood 11/27/2019 [facility] Lipid Panel, Serum 11/27/2019 [facility] PTH (Parathyroid Hormone), Intact, Serum or Plasma 11/27/2019 [facility] Urinalysis, Dipstick 11/27/2019 [facility] CMP, Serum or Plasma 11/27/2019 [facility] CBC W/ Auto Diff 11/27/2019 [facility] Referral Cardiology Referral 11/27/2019 Melo Hudson MD Procedures None recorded. Surgeries None recorded. Imaging Ankle Brachial Index 11/27/2019 [email or web address] Medications Name Start Date amlodipine 10 mg [...] TAKE 1 TABLET BY MOUTH EVERY DAY potassium chloride ER 20 mEq tablet,extended release(part/cryst) Take 1 tablet every day by oral route for 90 days. timolol maleate 0.5 % eye drops Apply by ophthalmic route for 75 days. Medications Administered None recorded. Vitals Height Weight BMI Blood Pressure 6 ft 2 in 271 lbs 34.8 kg/m2 138/68 mm[Hg] Results Lab Results None recorded. Allergies Code Code [...] Reaction Active 08/13/2019 Morbid Obesity Active 10/02/2019 Hypertensive Heart and Renal Disease with (Congestive) Heart Failure Active 11/27/2019 Procedures Date Name Performed by 11/25/1997 Hernia Repair Information not available Colonoscopy Information not available 11/27/2019 Ankle Brachial Index [email or web address] [address] [facility] [address] [place] [address] (Work Place) Vaccine List Vaccine Type influenza, high dose seasonal 01/06/20190.5 mL pneumococcal conjugate PCV 13 01/06/20190.5 mL Social History Tobacco Smoking Status Never Smoker Past Encounters 11/27/2019 Adult Health Examination; Obesity; Advance Directive Discussed with Patient; Type 2 Diabetes Mellitus; Depression Screening; Hypertensive Heart and Renal Disease with (Congestive) Heart Failure; Chronic Kidney Disease Stage 3; Congestive Heart Failure; Hyperlipidemia; Inflammation of Sacroiliac Joint; Secondary Hyperparathyroidism; Peripheral Vascular Disease; Screening for Cardiovascular System Disease; Electrocardiogram Abnormal; Ventricular Premature Complex; Atrial Fibrillation; Osteoarthritis of Right Knee Joint Brock Das Jr, MD: [id number] [facility], [address], [place] [address], Ph. History of Present Illness Diabetes F/U Reported By: Patient HPI: Labs: last A1C result: 6.6. Associated Symptoms: no dizziness, no sweats, no headaches, no confusion, no increased thirst, no increased appetite, no increased urination, no blurred vision, no numbness of feet Hypertension Reported By: Patient HPI: Severity: mild. Onset/Timing: gradual onset. Alleviating Factors: relieved with rest, medication. Self Care: not under emotional stress, blood pressure goal: 130/80. Associated Symptoms: no shortness of breath, no fatigue, no decline in exercise capacity Mini Cog Reported By: Patient Functional Ability: Personal/Social/ Draw a clock and write in the numbers in the correct place, and set the time to 10 minutes after 11 o'clock was completed correctly? Yes, 3 word recall: Your nurse or doctor will ask you to remember 3 words. In 5 minutes, they will ask you to repeat them. Patient recalled 3 words Hyperlipidemia Reported By: Patient HPI: Type of hyperlipidemia: combined, hypercholesterolemia. Duration: chronic. Current Therapy: currently taking:. Complications: no coronary artery disease Opioid Use Assessment Reported By: Patient Review of Systems Comprehensive General Adult ROS, Diabetes F/U ROS Reported By: Patient Constitutional: Constitutional: no significant weight gain, no significant weight loss Cardiovascular: Cardiovascular: no chest pain, no shortness of breath when walking Respiratory: Respiratory: no cough, no wheezing, no shortness of breath Endocrine: Endocrine: no fatigue Physical Exam General Adult Exam (male), Cardiology Exam, Diabetes, Diabetic Foot Exam Reported By: Patient Constitutional: General Appearance: well-nourished, well-developed, appears stated age. Level of Distress: NAD Psychiatric: Insight: good judgement, good insight. Mental Status: active and alert, normal mood, normal affect, no diffuse anxiety, no paranoid ideations. Orientation: to time, to place, to person, oriented to time, place, and person. Memory: recent memory normal, remote memory normal Lungs: Auscultation: good air movement, CTA except as noted, no wheezing, no rales/crackles, no rhonchi Cardiovascular: Heart Auscultation: normal S1, no rubs, no gallops, physiologically split S2, no click, irregularly irregular. Pulses including femoral / pedal: full and equal in all extremities except if noted. Systolic Murmur: not heard. Diastolic Murmur: not heard Musculoskeletal:: Extremities: no cyanosis, no edema, no peripheral signs of emboli Skin: Inspection and palpation: warm and dry Back: Thoracolumbar Appearance: no chest wall tenderness
[2020-01-04] MEDS ORDERED: DEXAMETHASONE SOD PHOS 10 MG/1 ML VIAL ONE (06:07)
[2020-01-04] MEDS ORDERED: CEFAZOLIN SOD 1 GM/NS 50ML 100 ML IV ONE (06:08)
[2020-01-04] MEDS ORDERED: GABAPENTIN 300 MG CAP ONE (06:08)
[2020-01-04] MEDS ORDERED: VANCOMYCIN HCL 1,000 MG ONE (06:10)
[2020-01-04] MEDS ORDERED: BACITRACIN 50,000 UNIT VIAL ONE (06:11)
[2020-01-04] MEDS ORDERED: TRANEXAMIC ACID 1,000 MG/10 ML ML ONE (06:11)
[2020-01-04] MEDS ORDERED: SODIUM CHLORIDE 0.9% 500ML 500 ML ONE (06:20)
[2020-01-04] MEDS ORDERED: ROPIVACAINE 246.25 MG, EPINEPHRINE HCL 1:1000 1ML 0.5 MG, CLONIDINE HCL 0.08 MG, KETORO... INJ ONE ×5 (08:00)
[2020-01-04] MEDS ORDERED: KETOROLAC TROMETHAMINE 30 MG/ML VIAL IV PRN (08:30)
[2020-01-04] MEDS ORDERED: HYDROCODONE/APAP 5MG-325MG TAB PO PRN (08:30)
[2020-01-04] MEDS ORDERED: DIPHENHYDRAMINE HCL INJ 50 MG/ML VIAL IM/IV PRN (08:30)
[2020-01-04] MEDS ORDERED: PROMETHAZINE HCL (IM) 25 MG/ML VIAL IM PRN (08:30)
[2020-01-04] MEDS ORDERED: ONDANSETRON HCL INJ 2MG/ML 2ML 2 MG/ML VIAL IV PRN (08:30)
[2020-01-04] MEDS ORDERED: ACETAMINOPHEN 650 MG SUPP PR PRN (08:30)
[2020-01-04] MEDS ORDERED: DOCUSATE SODIUM 100 MG CAP PO PRN (08:30)
[2020-01-04] MEDS: ASPIRIN 325 MG TAB PO SCH ×2 (09:00→17:00)
[2020-01-04] MEDS ORDERED: CELECOXIB 100 MG CAP PO SCH (09:00)
--- NOTE | 2020-01-04 09:51 | Diagnostic Imaging Report ---
Exam: Right knee 2 views Clinical history: Postop Findings: The patient is status post right total knee arthroplasty. The joint prosthesis appear in its expected location. There is no evidence of acute fracture or malalignment. Subcutaneous air is noted consistent with recent surgery. Impression: 1. Status post right total knee arthroplasty with postoperative changes. Signed by: Dr. Anthony Almazan MD on 01/04/2020 9:49 AM
[2020-01-04] MEDS ORDERED: FENTANYL CITRATE/PF 100MCG/2 ML INJ ONE ×2 (10:44→18:52)
--- NOTE | 2020-01-04 12:18 | Operative Report ---
DATE OF PROCEDURE: 01/04/2020 SURGEON: Melo Recio MD TRAY LINE SUPERVISOR: Guerrero Maire, certified PA. PREOPERATIVE DIAGNOSIS: Osteoarthritis, right knee. POSTOPERATIVE DIAGNOSIS: Osteoarthritis, right knee. PROCEDURE: Right total knee arthroplasty. INDICATIONS: The patient is a 74-year-old gentleman, who has end-stage arthritis of his right knee. He has failed conservative management and would like to proceed with a right total knee replacement. The risks and benefits of the procedure have been discussed. All of his questions have been answered. He states he understands and wishes to proceed. PROCEDURE IN DETAIL: The patient was brought to the operating room and placed under general anesthetic. He received prophylactic antibiotics, a regional block, and tranexamic acid in the holding area. His right lower extremity was prepped and draped in a sterile manner. A preoperative time-out was performed. The extremity was exsanguinated and a proximal tourniquet was inflated to 300 mmHg. An anterior incision with a medial parapatellar arthrotomy was performed. A small amount of clear synovial fluid was removed from the joint. Soft tissue releases were performed to bring the knee up into flexion with the patella everted. The patient had an approximately 5 to 10 degree flexion contracture prior to the surgery. The cruciate ligaments, marginal osteophytes, and meniscal remnants were carefully removed. The knee was very tight. An extramedullary cutting guide was used to resect the proximal tibia. A +2 mm cut was necessary due to the flexion contracture. A [employer] Persona Knee System was used throughout the case. The tibial base plate was a size H. The central fin punch was drilled and impacted and attention was directed towards the distal femur. An intramedullary cutting guide was used to resect the distal femur in 6 degrees of valgus and rotation referencing off a combination of landmarks including Whitesides line, the epicondylar axis, and the posterior condyles. The femoral component was a size #11. The anterior and posterior cuts were made. Trial reductions were performed. A 10 mm medial congruent tibial insert provided appropriate soft tissue balancing in full extension and 90 degrees of flexion. The patella was resurfaced with a 38 mm x 9.5 mm patellar button. The thickness was checked before and after and was right around 27 mm. Patellar tracking was concentric. The trial implants were removed. A 100 mL premixed pericapsular TERE injection was placed into the surrounding soft tissue. The knee was thoroughly irrigated with a shower tip pulsatile lavage. All bone cuts had also been irrigated with a spray mixture of diluted polymyxin and vancomycin spray. The components were cemented into place using a single mix of high viscosity Biomet cement. Care was taken to remove all extravasated cement. The wound was further irrigated while the cement cured. The arthrotomy was then closed with interrupted #1 Ethibond. The knee was put through flexion and extension to ensure a secure closure. The skin was closed with subcuticular Vicryl and vandana. A sterile Aquacel bandage and an Riky wrap were applied. The patient was extubated and transported to the recovery room in stable condition. Blood loss was minimal. All needle and sponge counts were correct. Melo Recio MD DR/ROMELIA /[id number]
[2020-01-04] MEDS ORDERED: CEFAZOLIN SOD 1 GM/NS 50ML 50 ML IV SCH (14:00)
[2020-01-04] MEDS ORDERED: HYDROCODONE/APAP 5MG-325MG TAB ONE (14:01)
--- NOTE | 2020-01-04 15:20 | NUR ---
received to rm aaox3 no distress noted, updated on poc vocied understanding, denies pain at this time, dsg to right knee c/d/i, no other co vocied call light in reach will continue to monitor
[2020-01-04] MEDS: SODIUM CHLORIDE 0.9% 1000ML 1,000 ML IV SCH (17:00)
[2020-01-04] MEDS: CELECOXIB 200 MG CAP PO SCH (17:00)
[2020-01-04 17:29] VITALS: BP 129/87
[2020-01-04] MEDS: CEFAZOLIN SOD 1 GM/NS 50ML 50 ML IV SCH (17:30)
[2020-01-04] MEDS: ACETAMINOPHEN 1000 MG/100 ML IV SCH (18:20)
[2020-01-04] MEDS ORDERED: SEVOFLURANE INHAL SOLN 250 ML PEN BTL ONE (18:27)
[2020-01-04] MEDS ORDERED: PROPOFOL IV EMULSION 10 MG/ML 20 ML VIAL ONE (18:27)
[2020-01-04] MEDS ORDERED: EPHEDRINE SULFATE INJ 50 MG/ML VIAL ONE (18:27)
[2020-01-04] MEDS ORDERED: ONDANSETRON HCL INJ 2MG/ML 2ML 2 MG/ML VIAL ONE (18:27)
[2020-01-04] MEDS ORDERED: LIDOCAINE HCL 2% LOCAL INJ 5 ML SDV VIAL INJ ONE (18:27)
[2020-01-04] MEDS ORDERED: ACETAMINOPHEN 1000 MG/100 ML IV ONE (18:27)
[2020-01-04] MEDS ORDERED: ROPIVACAINE 0.5% 5 MG/ML 30 ML SDV ONE (18:45)
[2020-01-04] MEDS ORDERED: LIDOCAINE HCL 2% LOCAL 20 ML VIAL ONE (18:45)
[2020-01-04] MEDS ORDERED: MIDAZOLAM HCL 2 MG/2 ML VIAL ONE (18:52)
--- NOTE | 2020-01-04 19:09 | NUR ---
WALKING ROUNDS PERFORMED, RECEIVED PT LAYING SEMI FOWLERS IN BED, AAOX3, RR EVEN AND NON-LABORED, ON ROOM AIR. NO S/SX OF DISTRESS NOTED. DRESSING TO (R) KNEE CDI SECURED WITH LYDIA WRAP. LEFT PT LAYING SEMI FOWLERS IN BED, BED IN LOW LOCKED POSITION, SIDE RAILS UPX2, CALL LIGHT AND PHONE WITHIN REACH. FAMILY AT BEDSIDE.
[2020-01-04 19:30] VITALS: BP 129/87
[2020-01-04 20:00] VITALS: BP 122/57
[2020-01-04] MEDS ORDERED: ZOLPIDEM TARTRATE 5 MG TAB PO PRN (21:00)
[2020-01-04 22:25] VITALS: BP 122/57
[2020-01-05] VITALS: BP 126/60
[2020-01-05] MEDS: ACETAMINOPHEN 1000 MG/100 ML IV SCH ×2 (00:02→06:18)
[2020-01-05] MEDS: CEFAZOLIN SOD 1 GM/NS 50ML 50 ML IV SCH ×2 (00:28→08:50)
[2020-01-05 04:00] VITALS: BP 133/65
[2020-01-05] MEDS: SODIUM CHLORIDE 0.9% 1000ML 1,000 ML IV SCH (04:30)
[2020-01-05 06:09] LABS: HEMATOCRIT 39.1 % (38.2-49.6); HEMOGLOBIN 13.3 g/dL (14.0-18.0)
--- NOTE | 2020-01-05 07:35 | NUR ---
PT ALERT RESP EVEN AND UNLABORED AT THIS TIME NO DISTRESS NOTED PT ABLE TO MAKE NEEDS KNOWN, PT FAMILY MEMBER AT BEDSIDE, PT CALL LIGHT IN REACH.
[2020-01-05 08:02] VITALS: BP 119/61
[2020-01-05] MEDS: HYDROCODONE/APAP 7.5MG-325MG 1 EA TAB PO PRN ×2 (08:49→14:06)
[2020-01-05] MEDS: ASPIRIN 325 MG TAB PO SCH (08:50)
[2020-01-05] MEDS: CELECOXIB 200 MG CAP PO SCH (08:50)
[2020-01-05] MEDS ORDERED: POTASSIUM CHLORIDE 10MEQ EA PO SCH (09:00)
[2020-01-05] MEDS ORDERED: FUROSEMIDE 40 MG TAB PO SCH (09:00)
[2020-01-05] MEDS ORDERED: AMLODIPINE BESYLATE 10 MG TAB PO SCH (09:00)
[2020-01-05 09:42] VITALS: BP 119/61
[2020-01-05] MEDS ORDERED: ONDANSETRON HCL 4 MG ORAL DISINTEGRATING TAB PO PRN (10:45)
[2020-01-05] MEDS ORDERED: BRIMONIDINE TARTRATE (OPTH) 5 ML LIQD OP SCH (11:00)
[2020-01-05 11:56] VITALS: BP 126/56
--- NOTE | 2020-01-05 15:13 | NUR ---
PT DISCHARGED HOME , PRESCRIPTIONS WERE SENT TO PHARMACY, PT EDUCATED TO FOLLOW UP WITH PCP, AND ORTHOPEDIC DOCTOR, IV SITE REMOVED, NO SWELLING NO REDNESS TO SITE.
[2020-01-05] MEDS ORDERED: ACETAMINOPHEN 1000 MG/100 ML IV PRN (18:00)
[2020-01-05] MEDS ORDERED: ATORVASTATIN 40 MG TAB PO SCH (21:00)
== END 2020-01-05 13:59 | disposition home health service (06) ==
LOC: OR 05:20 → PACU V 08:32 → MED/SURG 15:24
PROVIDERS: ADMIT Specialist; ATTEND Specialist
DX: M17.11 Unilateral primary osteoarthritis, right knee (principal); I11.0 Hypertensive heart disease with heart failure; I50.9 Heart failure, unspecified; E78.5 Hyperlipidemia, unspecified
CPT/HCPCS: 36415; 71046; 80048; 85014; 85018; 85025; C1713; C1776; G0378; J0171; J0690; J1100; J1885; J2001; J2250; J2405; J2795; J3010; J3370; J7030; J7040

== ENCOUNTER 2020-01-23 12:19 | Inpatient (IN) | payer MEDICARE, OTHER ==
[~2020-01-23] VITALS: Ht 188 cm; Wt 120.2 kg
[2020-01-23 12:53] LABS: BASOPHILS % 0.5 % (0.0-1.0); EOSINOPHILS # (AUTO) 0.5 (0.0-0.4); HEMATOCRIT 34.8 % (38.2-49.6); HEMOGLOBIN 11.1 g/dL (14.0-18.0); LYMPHOCYTES # (AUTO) 1.5 (1.0-3.2); LYMPHOCYTES % 19.4 % (18.0-39.1); MEAN CORPUSCULAR HEMOGLOBIN 30.6 pg (28-32); MEAN CORPUSCULAR HGB CONC 31.9 g/dL (31-35); MEAN CORPUSCULAR VOLUME 95.9 fL (81-99); MONOCYTES # (AUTO) 0.7 (0.2-0.8); MONOCYTES % 8.7 % (4.4-11.3); NEUTROPHILS # (AUTO) 4.9 (2.1-6.9); NEUTROPHILS % 65.1 % (38.7-80.0); PLATELET COUNT 331 x10e3/uL (140-360); RED BLOOD COUNT 3.63 x10e6/uL (4.3-5.7); RED CELL DISTRIBUTION WIDTH 13.2 % (11.7-14.4)
[2020-01-23 13:03] LABS: INR 0.98; PARTIAL THROMBOPLASTIN TIME 30.7 seconds (23.8-35.5); PROTHROMBIN TIME 13.6 seconds (11.9-14.5)
[2020-01-23 13:13] LABS: ALBUMIN 3.7 g/dL (3.5-5.0); CALCIUM 10.1 mg/dL (8.4-10.2); CREATININE, SERUM 1.73 mg/dL (0.72-1.25)
--- NOTE | 2020-01-23 13:25 | Diagnostic Imaging Report ---
EXAMINATION: CHEST SINGLE (PORTABLE) COMPARISON: Chest x-ray 12/31/2019 INDICATION: Altered level of consciousness ^ERMD ORDER ^[id number] ^1250 ^Y DISCUSSION: Frontal view of the chest obtained at 1251 hours. HEART AND MEDIASTINUM: Stable cardiomegaly and enlargement of the pulmonary arteries and veins. LINES: None. LUNGS: The lungs are well inflated and clear. Calcified granuloma in the right middle lobe is stable. PLEURA: No pleural effusion or pneumothorax. BONES AND SOFT TISSUES: No focal osseous lesion. The soft tissues are normal. IMPRESSION: Stable cardiomegaly and vascular congestion. Pulmonary artery hypertension is suspected. Signed by: Dr. James Carroll MD on 01/23/2020 1:23 PM
--- NOTE | 2020-01-23 13:27 | Diagnostic Imaging Report ---
History:Stroke like symptoms for 3 weeks, confusion Comparison studies: None Technique: Axial images were obtained from the skull base to the vertex. Coronal and sagittal images reconstructed from the axial data. Dose modulation, iterative reconstruction, and/or weight based adjustment of the mA/kV was utilized to reduce the radiation dose to as low as reasonably achievable. Intravenous contrast: None Findings: Scalp/skull: No abnormalities. Extra-axial spaces: No masses. No fluid collections. Brain sulci: Mildly prominent. Ventricles: Mild compensatory dilatation. No hydrocephalus. Parenchyma: There is focal hypodensity and loss of the patterson-white junction within the left perirolandic region, best appreciated on axial image 21 and 22 and sagittal images 39 and 40. There is no mass effect or significant volume loss. No hyperdensity to suggest hemorrhage. No additional foci of subcortical hypodensity is identified. Scattered ill-defined hypodensities in the supratentorial white matter are small vessel ischemic changes. No masses or hemorrhage Sellar/suprasellar region: No abnormalities. Craniocervical junction: Patent foramen magnum. No Chiari one malformation. Incidental findings: Atherosclerotic calcifications in the carotid siphons . Impression: Cortical and subcortical hypodensity within the left perirolandic region is favored to represent a small subacute ischemic and nonhemorrhagic injury. An acute insult is considered less likely given time frame in submitted history. This could be further evaluated with MRI of the brain without contrast as clinically indicated. Mild chronic microvascular ischemic changes. The images and preliminary report were reviewed and signed by Dr. Nani Artis, neuroradiology faculty, on 01/23/2020 at 1549 hours. Signed by: Dr. Nani Artis M.D. on 01/23/2020 3:51 PM
[2020-01-23 14:44] LABS: BILIRUBIN,URINE NEGATIVE (NEGATIVE); CLARITY,URINE CLEAR (CLEAR); COLOR,URINE YELLOW (YELLOW); KETONES,URINE NEGATIVE (NEGATIVE); LEUKOCYTE ESTERASE ,URINE NEGATIVE (NEGATIVE); NITRITE,URINE NEGATIVE (NEGATIVE); PROTEIN,URINE DIPSTICK NEGATIVE (NEGATIVE); URINE UROBILINOGEN 0.2 mg/dL (0.2 - 1)
[2020-01-23 14:51] LABS: BACTERIA,URINE FEW /HPF; EPITHELIAL CELLS,URINE FEW /LPF; RBC,URINE 0-5 /HPF (0-5); WBC,URINE (MAN) 0-5 /HPF (0-5)
[2020-01-23] MEDS ORDERED: ENOXAPARIN INJ 80 MG/0.8 ML SYR SC STA (15:31)
[2020-01-23] MEDS ORDERED: ONDANSETRON HCL INJ 2MG/ML 2ML 2 MG/ML VIAL IV PRN (15:45)
[2020-01-23] MEDS: SODIUM CHLORIDE 0.9% 1000ML 1,000 ML IV SCH ×2 (16:00→19:52)
[2020-01-23] MEDS ORDERED: LORAZEPAM INJ 2 MG/ML VIAL ONE (16:27)
[2020-01-23] MEDS ORDERED: LORAZEPAM INJ 2 MG/ML VIAL IV ONE (16:30)
[2020-01-23] MEDS ORDERED: LORAZEPAM INJ 2 MG/ML VIAL IV NR ×2 (16:30→16:45)
[2020-01-23] MEDS: ASPIRIN 325 MG TAB PO SCH (17:20)
--- NOTE | 2020-01-23 18:30 | NUR ---
Rec'd patient to Room 195. Patient alert, oriented, no acute distress; mild hypertension noted. Patient sitting in bed eating dinner.
[2020-01-23] MEDS ORDERED: IBUPROFEN 200 MG TAB PO PRN (18:50)
[2020-01-23 19:00] VITALS: BP_SYST 138; BP_SYST 163; BP_DIAS 57; BP_DIAS 89
[2020-01-23] MEDS ORDERED: DOCUSATE SODIUM 100 MG CAP PO PRN (19:30)
[2020-01-23 20:00] VITALS: BP 143/81
[2020-01-23 21:00] VITALS: BP 162/83
[2020-01-23] MEDS: HYDROCODONE/APAP 7.5MG-325MG 1 EA TAB PO PRN (21:26)
[2020-01-23 22:00] VITALS: BP 148/90
[2020-01-23 23:00] VITALS: BP 144/72
[2020-01-23] MEDS ORDERED: IBUPROFEN400 MG PO (23:42)
[2020-01-24] VITALS (14 sets, daily range): BP systolic 121–163; BP diastolic 60–87
--- NOTE | 2020-01-24 03:32 | Consultation ---
DATE OF CONSULTATION: 01/23/2020 Pulmonary Critical Care Consultation CHIEF COMPLAINT: Decreased movement in the right hand secondary to cerebrovascular accident. HISTORY OF PRESENT ILLNESS: The patient is a 74-year-old man. He has a history of hypertension and some irregular heart rhythms in the past. About 3 weeks ago, he had a total knee replacement. He has been recuperating at home. He has been using ibuprofen for pain. He came to the emergency department complaining of difficulty moving his right arm and hand. He did not complain of headache, difficulty walking, or other neurological complaints. He did not complain of chest pain. PAST SURGICAL HISTORY: Recent right knee surgery. PAST MEDICAL HISTORY: 1. Hypertension. 2. No prior cerebrovascular accident. 3. Hyperlipidemia. ALLERGIES: NO KNOWN DRUG ALLERGIES. SOCIAL HISTORY: The patient is not an active smoker or drinker. REVIEW OF SYSTEMS: The patient did not have fevers. He denied headache. He is not having any neck pain. He denied chest pain or difficulty breathing. He did have trouble moving his right hand and wrist. He had no abdominal pain. There was no nausea or vomiting. He has no leg edema. PHYSICAL EXAMINATION: VITAL SIGNS: The patient is afebrile, blood pressure is 144/72, and pulse is 60. HEENT: Shows no facial swelling or erythema. The nasal mucosa is normal. The oropharynx is normal. LYMPHATIC: Shows no submandibular, cervical, or supraclavicular adenopathy. CARDIAC: Reveals regular rate and rhythm with normal S1 and S2. LUNGS: Auscultation of lungs shows clear breath sounds bilaterally. There is no wheezing. ABDOMEN: Soft, nontender. There is no rebound or guarding. EXTREMITIES: Show no leg edema or calf tenderness. There is no cyanosis or clubbing. SKIN: Shows no rashes. NEUROLOGICAL: Shows improved movement in the right hand and wrist, but still with some loss of dexterity. LABORATORY DATA: The BUN to creatinine ratio is 19 to 1.73. The other electrolytes are within normal limits. Hemoglobin is 11.1 and white blood cell count is 7.5. The platelet count is 313. RADIOGRAPHIC DATA: CT scan of the brain shows a small subacute infarct in the left subcortical area. Chest x-ray shows cardiomegaly and some mild vascular congestion. IMPRESSION: 1. Left-sided subcortical cerebral infarct. 2. Hypertension. 3. Hyperlipidemia. PLAN: 1. The patient has been started on anti-platelet therapy. 2. An MRI and MRA of the brain have been performed, but the results are still pending. 3. Await echocardiogram and possible Cardiology evaluation. 4. Maintain blood pressure in the 140 to 150 range over 70 to 90 to ensure adequate cerebral blood flow and then gradually decrease as tolerated. 5. Neurology consultation is pending. MD CATHY Patel/ROMELIA /[id number]
[2020-01-24 05:17] LABS: BASOPHILS % 0.4 % (0.0-1.0); EOSINOPHILS # (AUTO) 0.5 (0.0-0.4); EOSINOPHILS % 6.3 % (0.0-6.0); HEMATOCRIT 32.8 % (38.2-49.6); HEMOGLOBIN 10.5 g/dL (14.0-18.0); LYMPHOCYTES # (AUTO) 1.4 (1.0-3.2); LYMPHOCYTES % 19.4 % (18.0-39.1); MEAN CORPUSCULAR HEMOGLOBIN 30.4 pg (28-32); MEAN CORPUSCULAR VOLUME 95.1 fL (81-99); MONOCYTES # (AUTO) 0.8 (0.2-0.8); MONOCYTES % 10.6 % (4.4-11.3); NEUTROPHILS # (AUTO) 4.6 (2.1-6.9); PLATELET COUNT 302 x10e3/uL (140-360); RED BLOOD COUNT 3.45 x10e6/uL (4.3-5.7); RED CELL DISTRIBUTION WIDTH 13.2 % (11.7-14.4)
[2020-01-24] MEDS: SODIUM CHLORIDE 0.9% 1000ML 1,000 ML IV SCH (05:20)
[2020-01-24 05:48] LABS: ALBUMIN 3.2 g/dL (3.5-5.0); CALCIUM 9.5 mg/dL (8.4-10.2); CREATININE, SERUM 1.4 mg/dL (0.72-1.25)
[2020-01-24] MEDS ORDERED: BRIMONIDINE TARTRATE (OPTH) 5 ML LIQD OP SCH (09:00)
[2020-01-24] MEDS ORDERED: ASPIRIN 325 MG TAB PO SCH (09:00)
[2020-01-24] MEDS: BRIMONIDINE TARTRATE (OPTH) 5 ML LIQD OP SCH (09:23)
[2020-01-24] MEDS: ASPIRIN 325 MG TAB PO SCH (09:23)
[2020-01-24 10:41] LABS: CHOL/HDL RATIO 6.3 (3.9-4.7)
[2020-01-24 11:00] LABS: THYROID STIMULATING HORMONE 0.965 uIU/mL (0.350-4.940)
--- NOTE | 2020-01-24 11:01 | Diagnostic Imaging Report ---
Examination: MRI BRAIN WO CONTRAST History: Stroke like symptoms for 3 weeks, confusion Comparison studies: Head CT earlier the same day Technique: Sagittal T2; axial DWI, FLAIR, GRE or SWI, T1, Coronal FLAIR. Intravenous contrast: None Findings: Scalp: No abnormal signal. No masses. Bone marrow: Normal in signal intensity. Brain volume: Mild volume loss. Ventricles: No hydrocephalus. Extra-axial spaces: No abnormalities. Parenchyma: Again seen is focal cortical and subcortical hyperintensity and loss of the patterson-white junction within the left perirolandic region. No masses or hemorrhage. Again demonstrated are patchy and confluent areas of T2/FLAIR hyperintensity in the periventricular and subcortical white matter, nonspecific. Suprasellar and sellar region: No abnormalities. Craniocervical junction: No abnormalities. The foramen magnum is patent. No Chiari malformations. Vessels: Normal flow-voids in the arteries and sinuses. Additional findings:None. IMPRESSION: Acute nonhemorrhagic left perirolandic infarct. Mild chronic microvascular ischemic change and volume loss. Signed by: Dr. Nani Artis M.D. on 01/24/2020 10:59 AM
--- NOTE | 2020-01-24 11:21 | Diagnostic Imaging Report ---
Examination: MRA NECK WO CONTRAST History: Stroke like symptoms for 3 weeks, confusion Comparison studies: None Technique: 2-D [id number] MR angiogram of the cervical circulation was obtained. MIP images of the arteries were isolated into the right and left cervical circulations, 180 degree projections. Axial source images are available for evaluation. Degree of stenosis at the carotid bulbs, if present, will be calculated using NASCET criteria where the smallest diameter at the location of stenosis is compared to the diameter of the more distal non-diseased vessel lumen. Findings: Aortic arch: Normal 3 great vessel origin. Patent. Internal carotid arteries: There is absence of flow related signal in the proximal left internal carotid artery for a length of 1.6cm. Mild (less than 50%) stenosis fo the proximal right cervical internal carotid artery for a length of 2.0cm. No flow abnormalities at the origins of the common carotid arteries. Vertebral arteries: No flow abnormalities at the origins of the right vertebral artery or through its cervical segments (V1-V3). Absence of flow related signal in the V1-V3 segments of the left vertebral artery, which is related to either hypoplasia or occlusion. IMPRESSION: 1. 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 2. Mild (less than 50%) stenosis fo the proximal right cervical internal carotid artery for a length of 2.0cm. 3. Absence of flow related signal in the V1-V3 segments of the left vertebral artery, which is related to either hypoplasia or occlusion. Signed by: Dr. Nani Artis M.D. on 01/24/2020 11:19 AM
--- NOTE | 2020-01-24 13:59 | Progress Note ---
DATE: 01/24/2020 SUBJECTIVE: The patient is improved, but is awaiting MRI. He was seen by Neurology. PHYSICAL EXAMINATION: VITAL SIGNS: Blood pressure is 137/62 and saturation is 98%. CARDIAC: Reveals regular rate and rhythm with normal S1, S2. LUNGS: Auscultation of lungs reveals clear breath sounds bilaterally. ABDOMEN: Soft, nontender. There is no rebound or guarding. EXTREMITIES: Show no leg edema or calf tenderness. IMPRESSION: 1. Left-sided subcortical cerebral infarct. 2. Hypertension. 3. Hyperlipidemia. PLAN: 1. Continue antiplatelet therapy. 2. Await results of MRA and MRI. 3. Complete echocardiogram and carotid duplex. 4. Possible transfer out of intensive care unit. Myke Hudson MD [facility]/MOD[facility] /[id number]
--- NOTE | 2020-01-24 15:20 | Consultation ---
DATE OF CONSULTATION: 01/24/2020 Neurology Consultation SUBJECTIVE: A 74-year-old male comes in with right-sided hemiparesis. The patient has had surgery on his knee, total knee replacement about three weeks ago. He has been taking baby aspirin, presented after developing right-sided weakness in his hand mostly. He has history of hypertension, hyperlipidemia. No history of stroke or cardiovascular events. SOCIAL HISTORY: No alcohol, tobacco, or drugs. REVIEW OF SYSTEMS: Denies headache, nausea, vomiting, chest pain or neck pain. A 14-point review of systems is negative. PHYSICAL EXAMINATION: VITAL SIGNS: Blood pressure 142/72. His pulse seems regular at about 64. He is afebrile at 97.7. HEENT: Extraocular muscles intact. Face symmetric. Tongue is midline. Speech is clear. ABDOMEN: Soft, nontender. CARDIOVASCULAR: Appears to be regular on my exam in the 50s. PULMONARY: Clear to auscultation. ABDOMEN: Soft, nontender. EXTREMITIES: He has mild weakness or dysmetria mostly on the right hand. Otherwise seems to be doing relatively well. Reflexes symmetric. There is no ataxia. He has a little bit of dysmetria. ASSESSMENT AND PLAN: The patient comes in with a subcortical left hemispheric stroke with right-sided weakness. Diagnostic studies are in process, MRI and MRA. He is started on aspirin 325. We can get an echocardiogram and evaluate for PFO. Do an ultrasound of his right lower extremity, negative for DVT. Keep patient on 325 aspirin and atorvastatin. Get a lipid panel and a TSH and B12 level. MD HENOK LATHAM/ROMELIA /[id number]
--- NOTE | 2020-01-24 17:44 | History and Physical ---
CHIEF COMPLAINT: Altered mental status, intermittent weakness. HISTORY OF PRESENT ILLNESS: The patient is a 74-year-old male for the past week or so having some intermittent altered mental status and some weakness. The patient is completely coherent at this time. He is stable. He is stating that he has some right-sided weakness upper extremity much improved now. The patient came to the emergency room for evaluation. He has a neck MRA and brain MRI that was done, but still pending results. His CT of the brain without contrast showed that the patient has some cortical and subcortical hypodensity within the left region possible small subacute ischemic and nonhemorrhagic injury. The patient will have an MRI and report will be available once read by radiologist. In the meantime, the patient is stable. He is in the intensive care unit for close monitoring. The patient is otherwise stable. He has a right knee replacement approximately three weeks ago. His lab work is otherwise unremarkable. PAST MEDICAL HISTORY: Includin. Osteoarthritis with status post right knee replacement. 2. Hypertension. 3. Dyslipidemia. 4. Osteoarthritis. PAST SURGICAL HISTORY: Right knee replacement. SOCIAL HISTORY: The patient does not smoke or use alcohol. No regular drug use. ALLERGIES: NO KNOWN ALLERGIES. HOME MEDICATIONS: 1. Norvasc. 2. Lipitor. 3. Multiple eye drops. 4. Furosemide. 5. Ibuprofen. 6. Potassium. 7. Lisinopril. 8. Hydrochlorothiazide. PHYSICAL EXAMINATION: VITAL SIGNS: Temperature is 98, blood pressure 137/62, pulse rate is 63, and respirations 18. GENERAL: The patient is not in acute distress. He is awake. HEENT: Normocephalic and atraumatic. Anicteric. NECK: Supple grossly. PULMONARY: Clear. CARDIOVASCULAR: Regular rate and rhythm. ABDOMEN: Soft. EXTREMITIES: Status post right knee replacement. Moving all extremities. No edema. No cyanosis. NEUROLOGIC: The patient had good strength in both upper and lower extremity bilaterally. He is able to communicate. Alert and awake x4. No aphasia. No significant weakness noticed on examination. Please review neurology consultation examination for further details. LABORATORY DATA: Sodium is 138, potassium 4, chloride 104, bicarb 27, BUN 19, and creatinine 1.4. Glucose 126. WBC is 7.6, hemoglobin 11.1, hematocrit 34.8, and platelets 331. Preliminary echocardiogram showed ejection fraction approximately 45% to 50%. Neck MRA, brain MRI still pending. Chest x-ray otherwise unremarkable. IMPRESSION: 1. Possible transient ischemic attack/cerebrovascular accident. 2. Multiple chronic baseline problems. PLAN: Obtain MRI, MRA of the brain as done. Physical therapy. Continue with home medication. Permissive high blood pressure if having stroke. We will monitor the patient closely at this time. The patient is on normal saline at 125 cc an hour. He is on aspirin. He did receive one dose of Lovenox. There is no arrhythmia noticed. MD KWASI Alanis/MODL /[id number]
--- NOTE | 2020-01-24 19:23 | NUR ---
walking rounds complete, report handed to oncoming nurse.
[2020-01-24] MEDS ORDERED: ATORVASTATIN 20 MG TAB PO SCH (21:00)
[2020-01-24] MEDS: HYDROCODONE/APAP 7.5MG-325MG 1 EA TAB PO PRN (21:05)
[2020-01-25] VITALS (7 sets, daily range): BP systolic 136–159; BP diastolic 64–79
[2020-01-25 05:45] LABS: BASOPHILS % 0.6 % (0.0-1.0); EOSINOPHILS # (AUTO) 0.4 (0.0-0.4); EOSINOPHILS % 5.4 % (0.0-6.0); HEMATOCRIT 33.6 % (38.2-49.6); HEMOGLOBIN 11.3 g/dL (14.0-18.0); LYMPHOCYTES # (AUTO) 1.7 (1.0-3.2); LYMPHOCYTES % 25.3 % (18.0-39.1); MEAN CORPUSCULAR HEMOGLOBIN 31.1 pg (28-32); MEAN CORPUSCULAR HGB CONC 33.6 g/dL (31-35); MEAN CORPUSCULAR VOLUME 92.6 fL (81-99); MONOCYTES # (AUTO) 0.7 (0.2-0.8); MONOCYTES % 10.3 % (4.4-11.3); NEUTROPHILS # (AUTO) 3.9 (2.1-6.9); NEUTROPHILS % 58.1 % (38.7-80.0); PLATELET COUNT 311 x10e3/uL (140-360); RED BLOOD COUNT 3.63 x10e6/uL (4.3-5.7); RED CELL DISTRIBUTION WIDTH 13.1 % (11.7-14.4)
[2020-01-25 05:55] LABS: ANION GAP 11.8 mmol/L (8-16); BLOOD UREA NITROGEN 14 mg/dL (7-26); BUN/CREATININE RATIO 13 (6-25); CALCIUM 9.8 mg/dL (8.4-10.2); CARBON DIOXIDE 25 mmol/L (22-29); CHLORIDE 106 mmol/L (98-107); CREATININE, SERUM 1.12 mg/dL (0.72-1.25); EST GLOMERULAR FILTRATION RATE > 60 ML/MIN (60-); GLUCOSE 106 mg/dL (74-118); POTASSIUM 3.8 mmol/L (3.5-5.1); SODIUM 139 mmol/L (136-145)
--- NOTE | 2020-01-25 07:00 | NUR ---
RCD PT AT BED PT IS ALERT AND ORIENTED PT RESTING ON BED NO SIGNS OF ANY DISTRESS NOTED IV PATENT IV PATENT BY SALINE FAMILY AT BED SIDE FLUSH BED LOW AND LOCKED CALL LIGHT IN REACH
[2020-01-25] MEDS: HYDROCODONE/APAP 7.5MG-325MG 1 EA TAB PO PRN ×2 (08:03→21:34)
[2020-01-25] MEDS: BRIMONIDINE TARTRATE (OPTH) 5 ML LIQD OP SCH (09:00)
[2020-01-25] MEDS: ASPIRIN 325 MG TAB PO SCH (09:00)
--- NOTE | 2020-01-25 12:29 | NUR ---
Discontinuing PT services since patient is modified independent in functional mobility. Thank you. Addendum: 01/25/20 at 1230 by Flako jordan PT Amended: Links added.
--- NOTE | 2020-01-25 12:30 | NUR ---
no acute complaints 98.8 135/67 70 aox3 calm, eating lunch with friend in room face symmetric speech clear rrr cta abd soft nt nd motor 5/5 reflexes diminished no ataxia a/p high grade multi-artery stenosis max medical therapy asa and statin and plavix 75 eval by neurovascular interventionalist in near future at this time maximal medical therapy, and CTangiogram to evaluate extent of the occlusion will be needed to differentiate , however a neurointerventionist eval would be preferrable I discussed this with patient and a friend who was in the room. blood pressure permissive to 140
--- NOTE | 2020-01-25 12:44 | NUR ---
addendum to previous note pt needs close follow up with neuro-vascular interventionalist for evaluation of high grade stenosis 1 week
[2020-01-25] MEDS: ENOXAPARIN SOD INJ 40 MG/0.4 ML SYR SC SCH (16:31)
--- NOTE | 2020-01-25 17:20 | Consultation ---
DATE OF CONSULTATION: 01/25/2020 Cardiology Consult. HISTORY OF PRESENT ILLNESS: Mr. Ananda Otto is a 74-year-old male with primary history of hypertension, dyslipidemia, osteoarthritis, admitted complaining of altered mental status and slurred speech with left-sided weakness and syncopal episodes that happen three times at home, each episode lasting for a few minutes. The patient denies any chest pain, palpitations, or shortness of breath. MEDICAL HISTORY: Hypertension, dyslipidemia, and osteoarthritis. PAST SURGICAL HISTORY: Right knee arthroplasty and that is recent. FAMILY HISTORY: Mother had hypertension and acute myocardial infarction. SOCIAL HISTORY: The patient is nonsmoker. None alcohol and illicit drug use. MEDICATIONS: Home medications are: 1. Amlodipine 10 mg daily. 2. Atorvastatin 20 mg daily. 3. Furosemide 40 mg daily. 4. Lisinopril daily. PHYSICAL EXAMINATION: VITAL SIGNS: Temperature is 98.5, heart rate is 69, respirations 18 to 20, 96% pulse oximetry on room air. GENERAL APPEARANCE: The patient is well developed, well nourished, in no acute distress. HEAD: Normocephalic and atraumatic. EYES: Pupils are equally round and reactive to light and accommodation. Sclerae are nonicteric. Ears are normal. Oral cavity, mucosa is moist. Throat is clear. NECK and THYROID: Neck is supple. Full range of motion. No cervical lymphadenopathy. SKIN: Warm and dry. No suspicious lesions. CARDIOVASCULAR: Irregular rate and rhythm, S1 and S2 is audible, but irregular. No murmurs heard. LUNGS: Clear to auscultation, although diminished to lower lobes bilaterally. ABDOMEN: Soft, nontender, nondistended. Bowel sounds are present and obese. EXTREMITIES: No clubbing, no cyanosis, trace edema to the lower extremities. NEUROLOGIC: Nonfocal. Motor strength is normal upper and lower extremities. Sensory exam is intact. 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 EKG, sinus rhythm with frequent PACs with nonspecific ST-T changes. Serial cardiac enzymes, has no evidence of ischemia. 1. Monitor on telemetry continuously, monitor BP and carotid. 2. Carotid ultrasound was completed. 3. Echocardiogram to evaluate EF. 4. Continue on aspirin, statin, and DVT prophylaxis. 5. Further recommendations will follow depending on the patient's clinical course. Thank you for this consultation. We will continue to follow. Dictated by Ana Alexandre, LAUNDRY MARKER SUPERVISOR MD BRAN Awan/ROMELIA /[id number]
--- NOTE | 2020-01-25 18:37 | NUR ---
PT RESTING ON BED BED SIDE REPORT GIVEN TO ONCOMING NURSE
--- NOTE | 2020-01-25 19:07 | NUR ---
BSSR RECEIVED FROM LANDON MONTEIRO, PATIENT AWAKE ALERT, FAMILY AT BEDSIDE, PENDING DISCHARGE IN THE AM, NO DISTRESS NOTED, HX OF RIGHT KNEE SURGERY, PER LANDON MONTEIRO PATIENT AMBULATES WITH STANDBY ASSISTANCE, CALL LIGHT WITHIN REACH
--- NOTE | 2020-01-25 19:30 | NUR ---
BSSR RECEIVED FROM DAYSHIFT RN , PATIENT SEEN IN BED AT BEDSIDE, SKIN WARM DRY, REPORT OF MODERATE PAIN RIGHT KNEE PAIN, PATIENT STATES "DOCTOR TOLD ME IM GOING HOME TOMORRROW", PATIENT AMBULATES W/O DIFFICULTY, BED ALARM WITHIN REACH, BED IN LOWEST POSITION, PATIENT EDUCATED ON NEXT DOSE OF PAIN MEDICATION TIME.
[2020-01-25] MEDS: ATORVASTATIN 40 MG TAB PO SCH (21:31)
[2020-01-26] VITALS (11 sets, daily range): BP systolic 121–201; BP diastolic 66–95
--- NOTE | 2020-01-26 03:00 | NUR ---
PATIENT REPORTS SEVERE PAIN LEVEL 10/10, INABILITY TO SLEEP, PRN PAIN MEDICATION GIVEN FOR RELIEF UPON REQUEST, REMAINS AT MY BEDSIDE, TOLERATED PO PAIN MEDICATION WELL, RIGHT KNEE ASSESSMENT COMPLETED, NO SWELLING NOTED, NO DRAINAGE NOTED CALL LIGHT WITHIN REACH
[2020-01-26] MEDS: HYDROCODONE/APAP 7.5MG-325MG 1 EA TAB PO PRN ×2 (03:11→22:00)
--- NOTE | 2020-01-26 04:47 | NUR ---
TELEMETRY REPORTING SR 73 FIRST DEGREE HB, PAITNET RESTING NO S/SX OF CHEST PAIN, NO DISTRESS NOTED
[2020-01-26] MEDS: ASPIRIN 81 MG ENTERIC COATED PO SCH (08:29)
[2020-01-26] MEDS: BRIMONIDINE TARTRATE (OPTH) 5 ML LIQD OP SCH (08:31)
--- NOTE | 2020-01-26 08:32 | NUR ---
poor sleep due to knee pain vitals 98. 0 97 138/66 (max 201 /98) aox3 calm, sitting with in room face symmetric speech clear rrr cta abd soft nt nd motor 5/5 reflexes diminished no ataxia a/p high grade multi-artery stenosis max medical therapy asa and statin and plavix 75 eval by neurovascular interventionalist in near future at this time maximal medical therapy, and CTangiogram to evaluate extent of the occlusion will be needed to differentiate , however a neurointerventionist eval would be preferable max sbp 140 - recommend vascular surgical consult prior to dc discussed possible surgical and interventionalist proceedure with patient and exlpained need to maintain on plavix, asa 81 and atorvastain as maximal medical therapy until surgical options are explored patient and prefer not to pursue surgery as concern over blood products andreligious affiliations but are willing to speak to the surgoens
--- NOTE | 2020-01-26 08:50 | NUR ---
Manual BP 190/90. Dr Nielsen is here making rounds and he was notified of patient's BP. New orders received. Cardiology is also here making rounds and was notified of patient's current BP. New orders received.
[2020-01-26] MEDS ORDERED: CLOPIDOGREL BISULFATE 75 MG TAB PO ONE (09:00)
[2020-01-26] MEDS: HYDROCHLOROTHIAZIDE 25 MG TAB PO SCH (09:04)
[2020-01-26] MEDS: AMLODIPINE BESYLATE 10 MG TAB PO SCH (09:04)
[2020-01-26] MEDS: LISINOPRIL 10 MG TAB PO SCH (09:04)
[2020-01-26] MEDS ORDERED: HYDRALAZINE HCL 20 MG/ML VIAL IV ONE (09:35)
--- NOTE | 2020-01-26 10:52 | NUR ---
Manual BP 165/88
[2020-01-26] MEDS ORDERED: ONDANSETRON HCL 4 MG ORAL DISINTEGRATING TAB PO PRN (15:45)
[2020-01-26] MEDS: ENOXAPARIN SOD INJ 40 MG/0.4 ML SYR SC SCH (17:34)
--- NOTE | 2020-01-26 18:50 | NUR ---
BS shift report with morning nurse. Pt alert and oriented, lying in bed HOB 45. Denies pain at this time. Call light within reach. Bed locked. Will continue to monitor.
[2020-01-26] MEDS: ATORVASTATIN 40 MG TAB PO SCH (21:00)
--- NOTE | 2020-01-26 21:20 | NUR ---
PT TRANFERED VIA W/C INTO ROOM 113 FROM MED SURG 2. PT IS ALERT AND ORIENTED X3. S/P STROKE. PT HAD KNEE SURGERY IN RECENT PAST. STERISTRIPS ON RT KNEE- INCISION CLEAN, DRY AND INTACT. RESPIRATIONS EVEN AND UNLABORED. 20 G SL IN LEFT WRIST. NO WEAKNESS NOTED AFTER STROKE. PT AMBULATE TO BATHROOM. AT BEDSIDE. CALL LIGHT WITHIN REACH. BED LOCKED AND BED IN LOW POSITION. PT AND FAMILY ORIENTED TO ROOM,UNIT AND PLAN OF CARE.WILL MONITOR FOR CHANGES IN NEURO STATUS AND MONITOR FOR PAIN RELIEF S/P KNEE SURGERY.
--- NOTE | 2020-01-26 21:20 | NUR ---
Report given to receiving nurse. Pt alert and orient to name, situation informed of transfer. at bedside. Denies pain at this time. No acute distress noted.
[2020-01-27] VITALS: BP 147/95
--- NOTE | 2020-01-27 03:20 | Consultation ---
DATE OF CONSULTATION: 01/26/2020 REASON FOR CONSULT: Stroke, carotid stenosis; requested by Dr. Corby Bains. MEDICAL SECRETARY TEACHER: Dr. Melo Hudson. HISTORY OF PRESENT ILLNESS: I saw and evaluated this patient on January 26, 2020. He is a 74-year-old man with multiple medical problems who has had several episodes of left upper extremity weakness as well as dizziness over the last week after a knee surgery about 10 days ago. Several days after the knee surgery, he had an episode where his right upper extremity became weak, he had some confusion, but all the symptoms cleared after about 5 minutes. Then, last Saturday, about three days ago, he developed an episode of confusion and dizziness with some mild right upper extremity weakness. He called his who brought him to the emergency room. In the ER, he had an MRA of the brain which revealed an acute nonhemorrhagic left perirolandic infarct. There was also mild chronic microvascular ischemic changes. An MRI of the neck performed that same day, 01/23/2020 showed absence of flow in the proximal left internal carotid artery for a length of about 1.6 cm. There was a less than 50% stenosis of the proximal right internal carotid artery and no abnormalities at the origins of the common carotid arteries. The right vertebral artery did not have any hemodynamically significant stenosis. There was no flow in the V1 to V3 segments of the left vertebral artery, which was felt to be either hypoplasia or occlusion. A carotid duplex has been performed but the results of the imaging are not available this evening. There is no history of coronary artery disease, coronary artery stenting, or previous TIA or stroke. The patient is retired. He has knee problems which limit his exercise ability. No fevers or chills. is at the bedside. PAST MEDICAL HISTORY: Positive for hypertension, hyperlipidemia, and osteoarthritis. PAST SURGICAL HISTORY: Positive for right knee arthroplasty about 10 days ago. FAMILY HISTORY: Positive for hypertension and coronary artery disease in his mother. SOCIAL HISTORY: Negative for smoking, alcohol, IV drug use. MEDICATIONS: At home include amlodipine, atorvastatin, Lasix, and lisinopril. ALLERGIES: NONE KNOWN. REVIEW OF SYSTEMS: GENERAL: Positive for fatigue. NEUROLOGIC: Positive as above. Negative for dysarthria. HEENT: Negative for decreased vision or decreased hearing. CARDIAC: Negative for chest pain, palpitation. PULMONARY: Negative for shortness of breath or wheezing. GI: No constipation or diarrhea. : Negative for hematuria or dysuria. ENDOCRINE: Negative for polyuria, polydipsia. VASCULAR: Negative for claudication. SKIN: Negative for rash. HEMATOLOGIC: Negative for clotting or bleeding. INFECTIOUS: Negative for fevers or sweating. PSYCHIATRIC: Negative for depression or anxiety. PHYSICAL EXAMINATION: GENERAL: Well-developed, well-nourished man, sitting up in bed. is at the bedside. VITAL SIGNS: Blood pressure 140/70, pulse 80 and regular, respirations 16 and unlabored. NECK: Supple. Nontender. No JVD. CARDIAC: Exam shows a regular rate and rhythm. Normal S1 and S2. I could not appreciate any murmur. LUNGS: Clear to auscultation percussion bilaterally. ABDOMEN: Globally benign. Good bowel sounds. No hepatosplenomegaly. BACK: No CVA tenderness. No muscular spasm. EXTREMITIES: No cyanosis, clubbing, or edema. VASCULAR: Carotids not palpable on the left and there is no bruit. On the right, carotid is 2+/2+ with no bruits. Radials, femorals 2+/2+ bilaterally. SKIN: No rashes or nonhealing ulcers. MUSCULOSKELETAL: Full range of motion at all joints. No joint swelling. NEUROLOGIC: Cranial nerves 2-12 intact. Sensation intact to light touch and pinprick bilaterally. Strength 5/5 all extremities. LYMPHATICS: Negative for cervical, clavicular, femoral adenopathy. LABORATORY DATA: White count 6.7, hemoglobin 11.3, hematocrit 33.9, platelet count 311,000. INR 0.98, PT 13.6, PTT 30.7. Sodium 139, potassium 3.8, BUN 14, creatinine 1.1. IMAGING: Neck MRA as above with occlusion of the left internal carotid artery and no significant stenosis in the right internal carotid artery. There is absence of flow in the V1 to V3 segments of the left vertebral artery. CT scan shows a stroke as above. IMPRESSION: Occlusion of the left internal carotid artery, which resulted in left perirolandic stroke. The patient has recovered well. No intervention is warranted for a completely occluded carotid artery. However, further imaging might be useful to ensure that the carotid is actually completely occluded. We will discuss with his other physicians. I described the situation and our plans for treatment with his . Thank you much for asking me to see this nice man. MD MICHELLE Blanchard/ROMELIA /[id number]
[2020-01-27 04:30] VITALS: BP 160/77
[2020-01-27] MEDS: HYDROCODONE/APAP 7.5MG-325MG 1 EA TAB PO PRN (04:57)
[2020-01-27 07:25] VITALS: BP 120/62
[2020-01-27] MEDS: BRIMONIDINE TARTRATE (OPTH) 5 ML LIQD OP SCH (09:00)
[2020-01-27 10:18] VITALS: BP 120/62
[2020-01-27] MEDS: LISINOPRIL 10 MG TAB PO SCH (10:26)
[2020-01-27] MEDS: AMLODIPINE BESYLATE 10 MG TAB PO SCH (10:26)
[2020-01-27] MEDS: ASPIRIN 81 MG ENTERIC COATED PO SCH (10:26)
[2020-01-27] MEDS: HYDROCHLOROTHIAZIDE 25 MG TAB PO SCH (10:26)
--- NOTE | 2020-02-05 21:09 | Discharge Summary ---
CONSULTANTS: 1. Melo Hudson M.D. 2. Myke Hudson M.D. 3. Janeen Paez M.D. FINAL DIAGNOSES: 1. Left-sided ischemic cerebrovascular accident. 2. Carotid disease, occluded left internal carotid artery and occluded segment of the left vertebral artery, medical management recommended. SUMMARY: The patient is a 74-year-old male, came in to the hospital with some right-sided weakness and some confusion. The MRI showed left-sided ischemic CVA. The patient subsequently improved, his symptoms completely resolved. The patient had multiple workup done. The patient's left carotid medical management by chronic pulmonary is present. The patient instructed to follow up with Dr. Barksdale and Dr. Melo Hudson in approximately 1-2 weeks. The patient was discharged home with baby aspirin and Plavix 75 mg daily. The patient will continue with his other usual home medications. The patient is otherwise stable, discharged home, follow up as an outpatient as instructed. MD KWASI Alanis/ROMELIA /[id number]
== END 2020-01-27 11:26 | disposition home or self-care (01) | DRG 62 ==
LOC: ER 12:19 → ERHOLD 15:31 → ICU 18:30 → MED/SURG2 01-24 17:45 → MED/SURG 01-26 21:00
PROVIDERS: ADMIT Internal Medicine; ATTEND Internal Medicine
DX: I63.232 Cerebral infarction due to unspecified occlusion or stenosis of left carotid arteries (principal); G81.91 Hemiplegia, unspecified affecting right dominant side; M17.11 Unilateral primary osteoarthritis, right knee; E78.5 Hyperlipidemia, unspecified; Z96.651 Presence of right artificial knee joint; E86.0 Dehydration
CPT/HCPCS: 36415; 70450; 70547; 70551; 71045; 80048; 80053; 80061; 81001; 82550; 82553; 82607; 83880; 84443; 84484; 85025; 85610; 85730; 93005; 93306; 93880; 93970; 97139; 99284; J0360; J1650; J2060; J7030

== ENCOUNTER 2021-06-27 11:48 | Emergency (ER) | payer MEDICARE ==
[~2021-06-27] VITALS: Ht 188 cm; Wt 120.2 kg
[~2021-06-27 11:48] MED LIST changes: +IBUPROFEN400 MG PO
[2021-06-27 12:26] LABS: BASOPHILS % 0.2 % (0.0-1.0); HEMATOCRIT 37.8 % (38.2-49.6); HEMOGLOBIN 12.3 g/dL (14.0-18.0); LYMPHOCYTES # (AUTO) 1.3 (1.0-3.2); LYMPHOCYTES % 10.1 % (18.0-39.1); MEAN CORPUSCULAR HEMOGLOBIN 30.8 pg (28-32); MEAN CORPUSCULAR HGB CONC 32.5 g/dL (31-35); MEAN CORPUSCULAR VOLUME 94.7 fL (81-99); MONOCYTES % 8.1 % (4.4-11.3); NEUTROPHILS # (AUTO) 10.3 (2.1-6.9); NEUTROPHILS % 81.1 % (38.7-80.0); PLATELET COUNT 228 x10e3/uL (140-360); RED BLOOD COUNT 3.99 x10e6/uL (4.3-5.7); RED CELL DISTRIBUTION WIDTH 13.5 % (11.7-14.4)
[2021-06-27 12:54] LABS: ALBUMIN 3.7 g/dL (3.5-5.0); ALBUMIN/GLOBULIN RATIO 1.1 (0.8-2.0); ANION GAP 13.8 mmol/L (8-16); CALCIUM 9.3 mg/dL (8.4-10.2); CREATININE, SERUM 1.73 mg/dL (0.72-1.25); POTASSIUM 3.8 mmol/L (3.5-5.1)
[2021-06-27 13:41] VITALS: BP 143/83
== END 2021-06-27 14:27 | disposition left against medical advice (07) ==
LOC: ER 12:15
DX: R53.1 Weakness (principal); I10 Essential (primary) hypertension; E78.5 Hyperlipidemia, unspecified; Z79.01 Long term (current) use of anticoagulants; Z86.73 Personal history of transient ischemic attack (TIA), and cerebral infarction without residual deficits
CPT/HCPCS: 36415; 70450; 71045; 80053; 84484; 85025; 93005; 99284

== ENCOUNTER 2021-10-18 04:59 | Emergency (ER) | payer MEDICARE, OTHER ==
[~2021-10-18] VITALS: Ht 188 cm; Wt 120.2 kg
[2021-10-18] MEDS ORDERED: CASIRIVIMAB/IMDEVIMAB 10 ML in SODIUM CHLORIDE 0.9% 100 ML IV ONE (05:15)
[2021-10-18] MEDS ORDERED: SODIUM CHLORIDE 0.9% 100 ML ONE (05:19)
[2021-10-18 05:38] VITALS: BP 113/69
== END 2021-10-18 06:00 | disposition home or self-care (01) ==
LOC: ER 05:06
DX: Z20.822 Contact with and (suspected) exposure to COVID-19 (principal); I10 Essential (primary) hypertension; E78.5 Hyperlipidemia, unspecified; Z86.73 Personal history of transient ischemic attack (TIA), and cerebral infarction without residual deficits; Z96.651 Presence of right artificial knee joint
CPT/HCPCS: 99283; J7050

== ENCOUNTER → 2022-07-23 | Day surgery (SDC) | payer MEDICARE ==
[2022-07-19 11:46] LABS: BASOPHILS % 0.5 % (0.0-1.0); EOSINOPHILS # (AUTO) 0.1 (0.0-0.4); EOSINOPHILS % 1.7 % (0.0-6.0); HEMOGLOBIN 14.1 g/dL (14.0-18.0); LYMPHOCYTES # (AUTO) 1.9 (1.0-3.2); LYMPHOCYTES % 32.2 % (18.0-39.1); MEAN CORPUSCULAR HEMOGLOBIN 31.1 pg (28-32); MEAN CORPUSCULAR HGB CONC 32.8 g/dL (31-35); MEAN CORPUSCULAR VOLUME 94.9 fL (81-99); MONOCYTES # (AUTO) 0.6 (0.2-0.8); MONOCYTES % 9.5 % (4.4-11.3); NEUTROPHILS # (AUTO) 3.3 (2.1-6.9); NEUTROPHILS % 55.8 % (38.7-80.0); PLATELET COUNT 227 x10e3/uL (140-360); RED BLOOD COUNT 4.53 x10e6/uL (4.3-5.7); RED CELL DISTRIBUTION WIDTH 13.4 % (11.7-14.4)
[2022-07-19 12:00] LABS: INR 0.95; PROTHROMBIN TIME 13.6 seconds (11.9-14.5)
[2022-07-19 12:11] LABS: ALBUMIN 3.7 g/dL (3.5-5.0); ANION GAP 16.1 mmol/L (8-16); CALCIUM 9.6 mg/dL (8.4-10.2); CHOL/HDL RATIO 6.6 (3.9-4.7); CREATININE, SERUM 1.81 mg/dL (0.72-1.25); POTASSIUM 4.1 mmol/L (3.5-5.1)
[2022-07-23] VITALS (23 sets, daily range): BP systolic 104–137; BP diastolic 16–93
[~2022-07-23] VITALS: Ht 188 cm; Wt 115.7 kg
[~2022-07-23] MED LIST changes: +ASPIRIN 325 MG TAB ONE; +BIVALRIUDIN 250 MG/VIAL VIAL IV ONE; +CLOPIDOGREL BISULFATE 75 MG TAB ONE; +FENTANYL CITRATE/PF 100MCG/2 ML INJ ONE; +HEPARIN SOD (PORCINE) 1000 UNIT/ML 30ML ONE; +HEPARIN SOD/SOD CHLORIDE 2,000 ML ONE; +IOPAMIDOL 370 MG/ML 100 ML INFUS..BTL INJ ONE; +LIDOCAINE HCL 1% LOCAL INJ 20 ML VIAL ONE; +MIDAZOLAM HCL 2 MG/2 ML VIAL ONE; +NITROGLYCERIN/D5W 200 MCG/ML 250 ML ONE; +SODIUM CHLORIDE 0.9% 1000ML 1,000 ML ONE; +VERAPAMIL HCL 2.5 MG/ML 2 ML VIAL ONE
== END | disposition home or self-care (01) ==
LOC: CATH LAB 07:01
PROVIDERS: ATTEND Internal Medicine Cardiovascular Disease
DX: I25.110 Atherosclerotic heart disease of native coronary artery with unstable angina pectoris (principal); I65.23 Occlusion and stenosis of bilateral carotid arteries; R94.39 Abnormal result of other cardiovascular function study; I10 Essential (primary) hypertension; E78.5 Hyperlipidemia, unspecified; Z79.02 Long term (current) use of antithrombotics/antiplatelets; Z79.82 Long term (current) use of aspirin; Z79.899 Other long term (current) drug therapy; Z68.33 Body mass index [BMI] 33.0-33.9, adult
CPT/HCPCS: 36222; 93454; C9600; 36200; 36415; 80053; 80061; 85025; 85610; 85730; 92928; 99152; 99153; C1725; C1760; C1769; C1874; C1887; J0583; J1644; J2001; J2250; J3010; J7030; Q9967

== ENCOUNTER → 2022-08-13 | Day surgery (SDC) | payer MEDICARE ==
[2022-08-10 10:19] LABS: BASOPHILS % 0.6 % (0.0-1.0); EOSINOPHILS # (AUTO) 0.1 (0.0-0.4); EOSINOPHILS % 1.8 % (0.0-6.0); HEMATOCRIT 41.7 % (38.2-49.6); HEMOGLOBIN 13.7 g/dL (14.0-18.0); LYMPHOCYTES % 29.9 % (18.0-39.1); MEAN CORPUSCULAR HGB CONC 32.9 g/dL (31-35); MEAN CORPUSCULAR VOLUME 94.3 fL (81-99); MONOCYTES # (AUTO) 0.7 (0.2-0.8); NEUTROPHILS # (AUTO) 3.7 (2.1-6.9); NEUTROPHILS % 56.1 % (38.7-80.0); PLATELET COUNT 213 x10e3/uL (140-360); RED BLOOD COUNT 4.42 x10e6/uL (4.3-5.7); RED CELL DISTRIBUTION WIDTH 13.1 % (11.7-14.4)
[2022-08-10 10:36] LABS: INR 0.91; PROTHROMBIN TIME 13.1 seconds (11.9-14.5)
[2022-08-10 10:37] LABS: PARTIAL THROMBOPLASTIN TIME 32.6 seconds (23.8-35.5)
[2022-08-10 10:47] LABS: ALANINE AMINOTRANSFERASE 27 IU/L (0-55); ALBUMIN 3.8 g/dL (3.5-5.0); ALKALINE PHOSPHATASE 95 IU/L (40-150); BLOOD UREA NITROGEN 19 mg/dL (7-26); BUN/CREATININE RATIO 12 (6-25); CALCIUM 9.6 mg/dL (8.4-10.2); CARBON DIOXIDE 29 mmol/L (22-29); CHLORIDE 99 mmol/L (98-107); CHOL/HDL RATIO 5.8 (3.9-4.7); CHOLESTEROL 196 MD/DL (0-199); CREATININE, SERUM 1.62 mg/dL (0.72-1.25); GLUCOSE 123 mg/dL (74-118); HDL CHOLESTEROL 34 MG/DL (40-60); LDL CHOLESTEROL 140 MG/DL (60-130); SODIUM 138 mmol/L (136-145); TRIGLYCERIDES 109 MG/DL (0-149)
[~2022-08-13] VITALS: Ht 188 cm; Wt 113.4 kg
[2022-08-13] VITALS (20 sets, daily range): BP systolic 103–143; BP diastolic 54–82
[~2022-08-13] MED LIST changes: -ASPIRIN 325 MG TAB ONE; -VERAPAMIL HCL 2.5 MG/ML 2 ML VIAL ONE
== END | disposition home or self-care (01) ==
LOC: CATH LAB 07:19
PROVIDERS: ATTEND Internal Medicine Cardiovascular Disease
DX: I25.110 Atherosclerotic heart disease of native coronary artery with unstable angina pectoris (principal); R94.39 Abnormal result of other cardiovascular function study; I65.23 Occlusion and stenosis of bilateral carotid arteries; I10 Essential (primary) hypertension; E78.5 Hyperlipidemia, unspecified; Z01.812 Encounter for preprocedural laboratory examination; Z20.822 Contact with and (suspected) exposure to COVID-19; Z79.02 Long term (current) use of antithrombotics/antiplatelets; Z79.82 Long term (current) use of aspirin; Z79.899 Other long term (current) drug therapy; Z68.33 Body mass index [BMI] 33.0-33.9, adult
CPT/HCPCS: 0223U; 36415; 80053; 80061; 85025; 85610; 85730; C1725 ×2; C1760; C1769; C1874; C1887; C9600; J1644; J2001; J2250; J3010; J7030; Q9967; 92928; 93454; 99152; 99153; J0583

== ENCOUNTER 2023-03-10 18:59 | Emergency (ER) | payer MEDICARE ==
[~2023-03-10] VITALS: Ht 188 cm; Wt 120.7 kg
[~2023-03-10 18:59] MED LIST changes: -BIVALRIUDIN 250 MG/VIAL VIAL IV ONE; -CLOPIDOGREL BISULFATE 75 MG TAB ONE; -FENTANYL CITRATE/PF 100MCG/2 ML INJ ONE; -HEPARIN SOD (PORCINE) 1000 UNIT/ML 30ML ONE; -HEPARIN SOD/SOD CHLORIDE 2,000 ML ONE; -IOPAMIDOL 370 MG/ML 100 ML INFUS..BTL INJ ONE; -LIDOCAINE HCL 1% LOCAL INJ 20 ML VIAL ONE; -MIDAZOLAM HCL 2 MG/2 ML VIAL ONE; -NITROGLYCERIN/D5W 200 MCG/ML 250 ML ONE; -SODIUM CHLORIDE 0.9% 1000ML 1,000 ML ONE
[2023-03-10] MEDS ORDERED: SODIUM CHLORIDE 0.9% 1000ML 1,000 ML IV ONE (20:30)
[2023-03-10] MEDS ORDERED: ACETAMINOPHEN 325 MG TAB PO ONE (20:30)
[2023-03-10 20:56] LABS: BASOPHILS % 0.3 % (0.0-1.0); EOSINOPHILS # (AUTO) 0.1 (0.0-0.4); EOSINOPHILS % 0.8 % (0.0-6.0); HEMATOCRIT 37.4 % (38.2-49.6); HEMOGLOBIN 12.1 g/dL (14.0-18.0); LYMPHOCYTES # (AUTO) 1.6 (1.0-3.2); LYMPHOCYTES % 19.6 % (18.0-39.1); MEAN CORPUSCULAR HEMOGLOBIN 30.6 pg (28-32); MEAN CORPUSCULAR HGB CONC 32.4 g/dL (31-35); MEAN CORPUSCULAR VOLUME 94.4 fL (81-99); MONOCYTES # (AUTO) 0.7 (0.2-0.8); MONOCYTES % 9.2 % (4.4-11.3); NEUTROPHILS # (AUTO) 5.5 (2.1-6.9); NEUTROPHILS % 69.8 % (38.7-80.0); PLATELET COUNT 225 x10e3/uL (140-360); RED BLOOD COUNT 3.96 x10e6/uL (4.3-5.7)
[2023-03-10 21:18] LABS: ALBUMIN 3.6 g/dL (3.5-5.0); ALBUMIN/GLOBULIN RATIO 0.9 (0.8-2.0); ANION GAP 16.1 mmol/L (8-16); CALCIUM 9.9 mg/dL (8.4-10.2); CREATININE, SERUM 2.09 mg/dL (0.72-1.25); POTASSIUM 4.1 mmol/L (3.5-5.1)
[2023-03-10 22:04] LABS: BACTERIA,URINE FEW /HPF; CLARITY,URINE CLEAR (CLEAR); COLOR,URINE YELLOW (YELLOW); EPITHELIAL CELLS,URINE FEW /LPF; KETONES,URINE NEGATIVE (NEGATIVE); LEUKOCYTE ESTERASE ,URINE NEGATIVE (NEGATIVE); NITRITE,URINE NEGATIVE (NEGATIVE); PROTEIN,URINE DIPSTICK NEGATIVE (NEGATIVE); RBC,URINE 0-5 /HPF (0-5); URINE UROBILINOGEN 0.2 mg/dL (0.2 - 1); WBC,URINE (MAN) 0-5 /HPF (0-5)
[2023-03-11] MEDS ORDERED: METRONIDAZOLE500 MG PO (00:09)
[2023-03-11] MEDS ORDERED: NAPROSYN500 MG PO (00:09)
[2023-03-11] MEDS ORDERED: CIPRO500 MG PO (00:09)
[2023-03-11 01:01] VITALS: BP 119/80
[2023-03-13] MEDS ORDERED: MACROBID 100 M100 MG PO (17:46)
== END 2023-03-11 00:45 | disposition home or self-care (01) ==
LOC: ER 19:12
DX: R50.9 Fever, unspecified (principal); R19.7 Diarrhea, unspecified; K57.90 Diverticulosis of intestine, part unspecified, without perforation or abscess without bleeding; K40.90 Unilateral inguinal hernia, without obstruction or gangrene, not specified as recurrent; S93.691A Other sprain of right foot, initial encounter; W18.39XA Other fall on same level, initial encounter; Y93.01 Activity, walking, marching and hiking; Y92.89 Other specified places as the place of occurrence of the external cause; Z20.822 Contact with and (suspected) exposure to COVID-19
CPT/HCPCS: 36415; 71045; 73610; 73630; 74176; 80053; 81001; 83605; 85025; 87040; 87086; 87186; 99284; J0692; J7030; U0002

== ENCOUNTER 2025-01-05 15:37 | Emergency (ER) | payer MEDICARE ==
[~2025-01-05] VITALS: Ht 188 cm; Wt 122.5 kg
[~2025-01-05 15:37] MED LIST changes: +CIPRO500 MG PO; +MACROBID 100 M100 MG PO; +METRONIDAZOLE500 MG PO; +NAPROSYN500 MG PO
[2025-01-05 16:45] VITALS: PULSE 124; RESP 20; TEMP 100
[2025-01-05 17:22] LABS: BASOPHILS % 0.3 % (0.0-1.0); EOSINOPHILS # (AUTO) 0.1 (0.0-0.4); EOSINOPHILS % 0.9 % (0.0-6.0); HEMATOCRIT 40.2 % (38.2-49.6); HEMOGLOBIN 13.1 g/dL (14.0-18.0); LYMPHOCYTES # (AUTO) 1.7 (1.0-3.2); LYMPHOCYTES % 17.6 % (18.0-39.1); MEAN CORPUSCULAR HEMOGLOBIN 31.3 pg (28-32); MEAN CORPUSCULAR HGB CONC 32.6 g/dL (31-35); MEAN CORPUSCULAR VOLUME 96.2 fL (81-99); MONOCYTES # (AUTO) 0.9 (0.2-0.8); MONOCYTES % 8.9 % (4.4-11.3); NEUTROPHILS % 71.9 % (38.7-80.0); PLATELET COUNT 189 x10e3/uL (140-360); RED BLOOD COUNT 4.18 x10e6/uL (4.3-5.7); RED CELL DISTRIBUTION WIDTH 13.1 % (11.7-14.4); WHITE BLOOD COUNT 9.73 x10e3/uL (4.8-10.8)
[2025-01-05] MEDS: SODIUM CHLORIDE 0.9% 1000ML 1,000 ML IV ONE ×2 (17:23)
[2025-01-05] MEDS: Vancomycin IV 2 GM in SODIUM CHLORIDE 0.9% 500ML 500 ML IV ONE (17:23)
[2025-01-05 17:34] LABS: INR 0.99; PROTHROMBIN TIME 13.7 seconds (11.9-14.5)
[2025-01-05 17:43] LABS: ALBUMIN 3.5 g/dL (3.5-5.0); ANION GAP 15.3 mmol/L (8-16); BILIRUBIN,TOTAL 0.5 mg/dL (0.2-1.2); CALCIUM 9.7 mg/dL (8.4-10.2); CREATININE, SERUM 1.42 mg/dL (0.72-1.25); POTASSIUM 4.3 mmol/L (3.5-5.1)
[2025-01-05] MEDS ORDERED: CLEOCIN HCL150 MG PO (18:04)
[2025-01-05 19:27] VITALS: BP 147/91; PULSE 82; RESP 20; TEMP 100; O2SAT 98
== END 2025-01-05 19:29 | disposition home or self-care (01) ==
LOC: ER 16:31
DX: R50.9 Fever, unspecified (principal); L03.115 Cellulitis of right lower limb; I10 Essential (primary) hypertension; E78.5 Hyperlipidemia, unspecified; M47.816 Spondylosis without myelopathy or radiculopathy, lumbar region; M19.09 Primary osteoarthritis, other specified site; Z86.73 Personal history of transient ischemic attack (TIA), and cerebral infarction without residual deficits
CPT/HCPCS: 36415; 71045; 73560; 80053; 83605; 85025; 85610; 85730; 87040; 93971; 99284; J3370; J7030; J7040